=== PATIENT | male | born 1945 | race Caucasian/White ===

== ENCOUNTER 2017-11-14 00:08 | Emergency (ER) | payer MEDICARE, OTHER ==
[2017-11-14 00:14] VITALS: BP 176/78
[2017-11-14] MEDS ORDERED: Clindamycin HCl 150 MG Cap PO ONE (00:21)
[2017-11-14] MEDS ORDERED: Lidocaine 2% Viscous Solution 15 ML Cup PO ONE (00:21)
--- NOTE | 2017-11-14 00:27 | EDM.PDOC ---
ED HPI GENERAL MEDICAL PROBLEM - General Chief Complaint: ENT Problem Stated Complaint: TOOTH PAIN [id number] Time Seen by Provider: 11/14/17 00:17 Source of Information: Reports: Patient History Limitations: Reports: No Limitations - History of Present Illness INITIAL COMMENTS - FREE TEXT/NARRATIVE: This 72 yo male patient reports to the ED due to right lower posterior dental pain. The patient reports he first noticed the symptoms 1 month ago, but the pain went away. Today, the patient was out working cattle all day. When he got back in the house, he noticed the pain. The patient reports he took some ibuprofen a couple of days ago, but thought he was going to after taking the medication. The patient reports that he does not have a primary care provider. The patient reports that he plans to get into the dentist in the morning. Onset: Today Duration: Constant Location: Reports: Face Quality: Reports: Ache, Sharp, Stabbing Severity: Severe Improves with: Reports: None Worsens with: Reports: None Treatments FREIGHT BRAKEMAN: Reports: Other Medication(s) Other Treatments FREIGHT BRAKEMAN: anbesol Right Lower Face Pain Score (Numeric/FACES): 8 - Related Data Allergies Allergy/AdvReac Type Severity Reaction Status Date / Time oxycodone [From Percocet] Allergy Itching Verified 11/14/17 00:15 Penicillins Allergy Rash Verified 11/14/17 00:15 Home Meds: Home Meds . [No Known Home Meds] 04/03/16 [History] Past Medical History HEENT History: Reports: Hard of Hearing, Impaired Vision Other HEENT History: reading glasses Cardiovascular History: Reports: None Respiratory History: Reports: None Gastrointestinal History: Reports: None Genitourinary History: Reports: None Musculoskeletal History: Reports: Fracture Neurological History: Reports: None Psychiatric History: Reports: None Endocrine/Metabolic History: Reports: None Hematologic History: Reports: None Immunologic History: Reports: None Oncologic (Cancer) History: Reports: None Dermatologic History: Reports: None - Infectious Disease History Infectious Disease History: Reports: Measles - Past Surgical History GI Surgical History: Reports: Hernia Repair/Other Social & Family History - Tobacco Use Smoking Status *Q: Never Smoker Second Hand Smoke Exposure: No - Caffeine Use Caffeine Use: Reports: None - Recreational Drug Use Recreational Drug Use: No ED ROS ENT - Review of Systems Review Of Systems: ROS reveals no pertinent complaints other than HPI. ED EXAM, ENT - Physical Exam Exam: See Below Exam Limited By: No Limitations General Appearance: Alert, WD/WN, Moderate Distress Eye Exam: Bilateral Eye: EOMI, Normal Inspection, PERRL Ears: Normal External Exam, Normal Canal, Hearing Grossly Normal, Normal TMs Nose: Normal Inspection, Normal Mucousa, No Blood Mouth/Throat: Dental Pain, Dental Tenderness, Gum Swelling Head: Atraumatic, Normocephalic Neck: Normal Inspection, Supple, Non-Tender, Full Range of Motion Respiratory/Chest: No Respiratory Distress, Lungs Clear, Normal Breath Sounds, No Accessory Muscle Use, Chest Non-Tender Cardiovascular: Normal Peripheral Pulses, No Edema, No Gallop, No JVD, No Rub, Systolic Murmur, Extra Beats GI/Abdominal: Normal Bowel Sounds, Soft, Non-Tender, No Organomegaly, No Distention, No Abnormal Bruit, No Mass (Male) Exam: Deferred Rectal (Males) Exam: Deferred Extremities: Normal Inspection, Normal Range of Motion, Non-Tender, No Pedal Edema, Normal Capillary Refill Neurological: Alert, Oriented, CN II-XII Intact, Normal Cognition, Normal Gait, Normal Reflexes, No Motor/Sensory Deficits Psychiatric: Normal Affect, Normal Mood Skin: Warm, Dry, Intact, Normal Color, No Rash Lymphatic: No Adenopathy Course - Vital Signs Last Recorded V/S: Last Vital Signs Temp 36.8 C 11/14/17 00:12 Pulse 81 11/14/17 00:12 Resp 16 11/14/17 00:12 BP 176/78 H 11/14/17 00:12 Pulse Ox 98 11/14/17 00:12 - Orders/Labs/Meds Orders: Active Orders 24 hr Category Date Time Status Clindamycin HCl [Cleocin] Med 11/14/17 00:21 Once 300 mg PO ONETIME ONE Lidocaine 2% [Xylocaine 2% Viscous] Med 11/14/17 00:21 Once 15 ml PO ONETIME ONE Departure - Departure Time of Disposition: 00:28 Disposition: Home, Self-Care 01 Condition: Fair Clinical Impression: Dental caries extending into dentin - Discharge Information Instructions: Tooth Injuries, [id number], Dental Abscess, [id number] Care Plan Goals: The patient was advised of the examination results during the visit. The patient was given an oral dose of Clindamycin, Tylenol and Viscous Lidocaine 2% topical application to the area of concern. The patient was discharged with a script for Clindamycin (300 mg) to take 1 by mouth 4 times per day for 10 days and Viscous Lidocaine 2% #100 mL to apply 5-10 mL to a cotton ball applied to the area of discomfort every 6 hours as needed for temporary symptom relief. The patient was encouraged to follow-up with a dentist tomorrow for continued evaluation and further management. - My Orders Last 24 Hours: My Active Orders 11/14/17 00:21 Clindamycin HCl [Cleocin] 300 mg PO ONETIME ONE Lidocaine 2% [Xylocaine 2% Viscous] 15 ml PO ONETIME ONE - Assessment/Plan Last 24 Hours: My Active Orders 11/14/17 00:21 Clindamycin HCl [Cleocin] 300 mg PO ONETIME ONE Lidocaine 2% [Xylocaine 2% Viscous] 15 ml PO ONETIME ONE
[2017-11-14] MEDS ORDERED: Acetaminophen 325 MG Tab PO ONE (00:37)
== END 2017-11-14 00:40 | disposition home or self-care (01) ==
LOC: DL.ED 00:08
DX: K02.9 Dental caries, unspecified (principal); Z88.5 Allergy status to narcotic agent; Z88.0 Allergy status to penicillin
CPT/HCPCS: 99282; A9270-GY

== ENCOUNTER 2019-11-19 17:05 | Emergency (ER) | payer MEDICARE, OTHER ==
--- NOTE | 2019-11-19 18:26 | EDM.PDOC ---
ED HPI GENERAL MEDICAL PROBLEM - General Chief Complaint: Chest Pain Stated Complaint: CANT BREATH SWELLING UP Time Seen by Provider: 11/19/19 18:23 Source of Information: Reports: Patient History Limitations: Reports: No Limitations - History of Present Illness INITIAL COMMENTS - FREE TEXT/NARRATIVE: been having progressive SOB past year, today felt worse with pain on breathing. also legs have been swelling too. - Related Data Allergies Allergy/AdvReac Type Severity Reaction Status Date / Time oxycodone [From Percocet] Allergy Itching Verified 11/19/19 18:16 Penicillins Allergy Rash Verified 11/19/19 18:16 Home Meds: Home Meds . [No Known Home Meds] 04/03/16 [History] Past Medical History HEENT History: Reports: Hard of Hearing, Impaired Vision Other HEENT History: reading glasses Cardiovascular History: Reports: None Respiratory History: Reports: None Gastrointestinal History: Reports: None Genitourinary History: Reports: None, Other (See Below) Other Genitourinary History: Was told his kidneys "need some work". Musculoskeletal History: Reports: Fracture Neurological History: Reports: None Psychiatric History: Reports: None Endocrine/Metabolic History: Reports: None Hematologic History: Reports: None Immunologic History: Reports: None Oncologic (Cancer) History: Reports: None Dermatologic History: Reports: None - Infectious Disease History Infectious Disease History: Reports: Measles - Past Surgical History Head Surgeries/Procedures: Reports: None GI Surgical History: Reports: Hernia Repair/Other Social & Family History - Family History Family Medical History: Noncontributory - Caffeine Use Caffeine Use: Reports: Coffee Caffeine Use Comment: occassional ED ROS GENERAL - Review of Systems Review Of Systems: Comprehensive ROS is negative, except as noted in HPI. ED EXAM, GENERAL - Physical Exam Exam: See Below Exam Limited By: No Limitations General Appearance: Alert, WD/WN, Mild Distress, Other (discomfort) Ears: Hearing Grossly Normal Throat/Mouth: Normal Voice, No Airway Compromise Head: Atraumatic Neck: Non-Tender, Full Range of Motion Respiratory/Chest: No Respiratory Distress, No Accessory Muscle Use, Rhonchi Cardiovascular: Regular Rate, Rhythm GI/Abdominal: Soft, Non-Tender Extremities: Pedal Edema, Other (2+ bilateral) Neurological: Alert, Oriented, Normal Cognition, Normal Gait, No Motor/Sensory Deficits Psychiatric: Normal Affect, Normal Mood Skin Exam: Warm, Dry, Normal Color Lymphatic: No Adenopathy Course - Vital Signs Last Recorded V/S: Last Vital Signs Temp 36.6 C 11/19/19 17:48 Pulse 75 11/19/19 17:48 Resp 20 11/19/19 17:48 BP 177/73 H 11/19/19 17:48 Pulse Ox 98 11/19/19 17:48 - Orders/Labs/Meds Orders: Active Orders 24 hr Category Date Time Status EKG 12 Lead [EKG Documentation Completion] [RC] STAT Care 11/19/19 18:22 Active Chest 1V Frontal [CR] Urgent Exams 11/19/19 18:26 Taken UA RFX STEPHEN AND CULT IF INDIC [URIN] Stat Lab 11/19/19 20:03 Ordered Labs: Laboratory Tests 11/19/19 11/19/19 Range/Units 18:34 18:34 WBC 11.2 H (5.0-10.0) 10^3/uL RBC 2.76 L (4.6-6.2) 10^6/uL Hgb 7.7 L D (14.0-18.0) g/dL Hct 23.5 L (40.0-54.0) % MCV 85.1 (80-100) fL MCH 27.9 (27.0-34.0) pg MCHC 32.8 L (33.0-35.0) g/dL Plt Count 214 (150-450) 10^3/uL Neut % (Auto) 80.0 H (42.2-75.2) % Lymph % (Auto) 10.3 L (20.5-50.1) % [place] % (Auto) 8.5 H (2-8) % Eos % (Auto) 0.9 L (1.0-3.0) % Baso % (Auto) 0.3 (0.0-1.0) % Sodium 138 (135-145) mmol/L Potassium 6.0 H (3.6-5.0) mmol/L Chloride 116 H (101-111) mmol/L Carbon Dioxide 11.0 L (21.0-31.0) mmol/L Anion Gap 17.0 BUN 133 H D (7-18) mg/dL Creatinine 11.0 H D (0.6-1.3) mg/dL Est Cr Clr Drug Dosing 5.76 mL/min Estimated GFR (MDRD) 5 BUN/Creatinine Ratio 12.09 Glucose 118 H (74-105) mg/dL Calcium 7.0 L (8.4-10.2) mg/dl Total Bilirubin 0.5 (0.2-1.0) mg/dL AST 18 (10-42) IU/L ALT 31 (10-60) IU/L Alkaline Phosphatase 136 H (42-121) IU/L Troponin I 0.06 H* (0.00-0.02) ng/ml B-Natriuretic Peptide 1100 H (0-100) pg/ml Total Protein 6.4 L (6.7-8.2) g/dl Albumin 3.8 (3.2-5.5) g/dl Globulin 2.6 Albumin/Globulin Ratio 1.46 Meds: Medications Discontinued Medications Generic Name Dose Route Start Last Admin Trade Name Freq PRN Reason Stop Dose Admin Furosemide 80 mg 11/19/19 19:48 11/19/19 19:56 Lasix IVPUSH 11/19/19 19:49 80 mg NOW ONE Administration - Re-Assessments/Exams Free Text/Narrative Re-Assessment/Exam: 11/19/19 20:03 results discussed with pt who states does not go to dialysis. case discussed with Dr Lockhart @ [email or web address] who kindly accepted pt. Departure - Departure Time of Disposition: 20:04 Disposition: DC/Tfer to Acute Hospital 02 Reason for Transfer *Q: Other Condition: Fair Clinical Impression: Hyperkalemia, Dyspnea on exertion, Elevated troponin, Elevated brain natriuretic peptide (BNP) level Renal failure Qualifiers: Renal failure chronicity: unspecified chronicity Qualified Code(s): N19 - Unspecified kidney failure Chest pain Qualifiers: Chest pain type: chest pain on breathing Qualified Code(s): R07.1 - Chest pain on breathing; R07.81 - Pleurodynia CHF (congestive heart failure) Qualifiers: Heart failure type: unspecified Heart failure chronicity: unspecified Qualified Code(s): I50.9 - Heart failure, unspecified Forms: Interfacility Transfer EMTALA Sepsis Event Note - Focused Exam Vital Signs: Vital Signs Temp Pulse Resp BP Pulse Ox 11/19/19 17:48 36.6 C 75 20 177/73 H 98 Date Exam was Performed: 11/19/19 Time Exam was Performed: 20:03 - My Orders Last 24 Hours: My Active Orders 11/19/19 18:22 EKG 12 Lead [EKG Documentation Completion] [RC] STAT 11/19/19 18:26 Chest 1V Frontal [CR] Urgent 11/19/19 20:03 UA RFX STEPHEN AND CULT IF INDIC [URIN] Stat - Assessment/Plan Last 24 Hours: My Active Orders 11/19/19 18:22 EKG 12 Lead [EKG Documentation Completion] [RC] STAT 11/19/19 18:26 Chest 1V Frontal [CR] Urgent 11/19/19 20:03 UA RFX STEPHEN AND CULT IF INDIC [URIN] Stat
[2019-11-19 18:43] VITALS: BP 177/73; PULSE 75
[2019-11-19] MEDS ORDERED: Furosemide 40 MG/4 ML VIAL IVPUSH ONE (19:48)
== END 2019-11-19 21:00 ==
LOC: DL.ED 17:05
DX: E87.5 Hyperkalemia (principal); I50.9 Heart failure, unspecified; N19 Unspecified kidney failure; R79.89 Other specified abnormal findings of blood chemistry; Z88.5 Allergy status to narcotic agent; Z88.0 Allergy status to penicillin
CPT/HCPCS: 36415; 71045; 80053; 81001; 83880; 84484; 85025; 93005; 96374; 99285; J1940

== ENCOUNTER 2020-05-30 19:46 | Emergency (ER) | payer MEDICARE, OTHER ==
--- NOTE | 2020-05-30 20:54 | EDM.PDOC ---
ED HPI GENERAL MEDICAL PROBLEM - General Chief Complaint: Abdominal Pain Stated Complaint: ABDOMINAL PAINS Time Seen by Provider: 05/30/20 20:53 Source of Information: Reports: Patient History Limitations: Reports: No Limitations - History of Present Illness INITIAL COMMENTS - FREE TEXT/NARRATIVE: abd pain all week, told dialysis about it, not getting better so came here. pain is constant denies urinary problems and denies prior episode. Bilateral Lower Abdomen Pain Score (Numeric/FACES): 4 - Related Data Allergies Allergy/AdvReac Type Severity Reaction Status Date / Time oxycodone [From Percocet] Allergy Itching Verified 11/19/19 18:16 Penicillins Allergy Rash Verified 11/19/19 18:16 Home Meds: Home Meds . [No Known Home Meds] 04/03/16 [History] Past Medical History HEENT History: Reports: Hard of Hearing, Impaired Vision Other HEENT History: reading glasses Cardiovascular History: Reports: None Respiratory History: Reports: None Gastrointestinal History: Reports: None Genitourinary History: Reports: None, Dialysis, Dialysis, Peritoneal, Other (See Below) Other Genitourinary History: Was told his kidneys "need some work". Musculoskeletal History: Reports: Fracture Neurological History: Reports: None Psychiatric History: Reports: None Endocrine/Metabolic History: Reports: None Hematologic History: Reports: None Immunologic History: Reports: None Oncologic (Cancer) History: Reports: None Dermatologic History: Reports: None - Infectious Disease History Infectious Disease History: Reports: Measles - Past Surgical History Head Surgeries/Procedures: Reports: None GI Surgical History: Reports: Hernia Repair/Other Social & Family History - Family History Family Medical History: Noncontributory - Tobacco Use Smoking Status *Q: Never Smoker Second Hand Smoke Exposure: No - Caffeine Use Caffeine Use: Reports: Coffee Caffeine Use Comment: occassional - Recreational Drug Use Recreational Drug Use: No ED ROS GENERAL - Review of Systems Review Of Systems: Comprehensive ROS is negative, except as noted in HPI. ED EXAM, GI/ABD - Physical Exam Exam: See Below Exam Limited By: No Limitations General Appearance: Alert, WD/WN, Mild Distress, Other (discomfort). No: Active Emesis Ears: Hearing Grossly Normal Throat/Mouth: Normal Voice, No Airway Compromise Head: Atraumatic Neck: Non-Tender, Full Range of Motion Respiratory/Chest: No Respiratory Distress Cardiovascular: Regular Rate, Rhythm GI/Abdominal Exam: Guarding, Tender, Other (suprapubic region). No: Distended, Rigid, Rebound (Male) Exam: Deferred Rectal (Males) Exam: Deferred Neurological: Alert, Oriented, Normal Cognition, No Motor/Sensory Deficits Psychiatric: Flat Affect Skin Exam: Warm, Dry, Normal Color Lymphatic: No Adenopathy Course - Vital Signs Last Recorded V/S: Last Vital Signs Temp 36.6 C 05/30/20 20:16 Pulse 64 05/30/20 20:16 Resp 18 05/30/20 20:16 BP 170/60 H 05/30/20 20:16 Pulse Ox 100 05/30/20 20:16 - Orders/Labs/Meds Labs: Laboratory Tests 05/30/20 05/30/20 05/30/20 Range/Units 20:25 20:25 21:23 WBC 8.0 (5.0-10.0) 10^3/uL RBC 3.41 L (4.6-6.2) 10^6/uL Hgb 10.1 L D (14.0-18.0) g/dL Hct 30.0 L (40.0-54.0) % MCV 88.0 (80-100) fL MCH 29.6 (27.0-34.0) pg MCHC 33.7 (33.0-35.0) g/dL Plt Count 189 (150-450) 10^3/uL Neut % (Auto) 54.2 (42.2-75.2) % Lymph % (Auto) 31.5 (20.5-50.1) % [place] % (Auto) 9.1 H (2-8) % Eos % (Auto) 4.9 H (1.0-3.0) % Baso % (Auto) 0.3 (0.0-1.0) % Sodium 137 (136-145) mmol/L Potassium 6.5 H (3.5-5.1) mmol/L Chloride 105 (98-107) mmol/L Carbon Dioxide 17 L (21-32) mmol/L Anion Gap 21.5 H (7-13) mEq/L BUN 126 H (7-18) mg/dL Creatinine 12.56 H* (0.70-1.30) mg/dL Est Cr Clr Drug Dosing 5.07 mL/min Estimated GFR (MDRD) 4 BUN/Creatinine Ratio 10.0 (No establ ref range) Glucose 99 (74-99) mg/dL Calcium 7.6 L (8.5-10.1) mg/dL Total Bilirubin 0.4 (0.2-1.0) mg/dL AST 20 (15-37) U/L ALT 27 (16-63) U/L Alkaline Phosphatase 276 H (46-116) U/L Total Protein 6.1 L (6.4-8.2) g/dL Albumin 2.8 L (3.4-5.0) g/dL Globulin 3.3 Albumin/Globulin Ratio 0.85 Urine Color Yellow (YELLOW) Urine Appearance Clear (CLEAR) Urine pH 8.0 (5.0-9.0) Ur Specific [place] 1.020 (1.005-1.030) Urine Protein 100 H (NEGATIVE) Urine Glucose (UA) 100 H (NEGATIVE) Urine Ketones Negative (NEGATIVE) Urine Occult Blood Small H (NEGATIVE) Urine Nitrite Negative (NEGATIVE) Urine Bilirubin Negative (NEGATIVE) Urine Urobilinogen 0.2 (0.2-1.0) mg/dL Ur Leukocyte Esterase Negative (NEGATIVE) Urine RBC 0-5 /HPF Urine WBC 0-5 (0-5/HPF) /HPF Ur Epithelial Cells Rare (NOT SEEN) /HPF Urine Bacteria Occasional (0-FEW/HPF) /HPF Meds: Medications Discontinued Medications Generic Name Dose Route Start Last Admin Trade Name Freq PRN Reason Stop Dose Admin Nitrofurantoin Macrocrystals 100 mg 05/30/20 22:33 Macrobid PO 05/30/20 22:34 ONETIME ONE - Re-Assessments/Exams Free Text/Narrative Re-Assessment/Exam: 05/30/20 22:34 results discussed with 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 states winter is coming. Departure - Departure Time of Disposition: 22:35 Disposition: Home, Self-Care 01 Condition: Good Clinical Impression: Cystitis - Discharge Information Forms: ED Department Discharge Additional Instructions: 1) continue home dialysis 2) see kidney doctor Tuesday for possible UROLOGY REFERRAL rx givne; macrobid 100mg bid x 20 Sepsis Event Note (ED) - Evaluation Sepsis Screening Result: No Definite Risk - Focused Exam Vital Signs: Vital Signs Temp Pulse Resp BP Pulse Ox 05/30/20 20:16 36.6 C 64 18 170/60 H 100
[2020-05-30 21:00] LABS: ANION GAP 21.5 mEq/L (7-13)
--- NOTE | 2020-05-30 22:08 | CT ---
PROCEDURE INFORMATION: Exam: CT Abdomen And Pelvis Without Contrast Exam date and time: 05/30/2020 9:30 PM Age: 74 years old Clinical indication: Other: Low abd pain; Additional info: Pain, dialysis TECHNIQUE: Imaging protocol: Computed tomography of the abdomen and pelvis without contrast. Radiation optimization: All CT scans at this facility use at least one of these dose optimization techniques: automated exposure control; mA and/or kV adjustment per patient size (includes targeted exams where dose is matched to clinical indication); or iterative reconstruction. COMPARISON: No relevant prior studies available. FINDINGS: Tubes, catheters and devices: A peritoneal dialysis catheter is coiled within the pelvis. Lungs: Some strandy opacities are seen in the lingula likely representing atelectasis. There is mild bilateral basilar bronchiectasis and emphysema. Liver: Normal. No mass. Gallbladder and bile ducts: Normal. No calcified stones. No ductal dilation. Pancreas: Normal. No ductal dilation. Spleen: Normal. No splenomegaly. Adrenals: Normal. No mass. Kidneys and ureters: There multiple benign appearing cysts seen within both kidneys, the largest on the right is seen in the upper pole measuring 2.2 cm, the largest on the left is in the upper pole and measures 2.8 cm. There are strandy opacity seen within the perinephric fascia bilaterally, left more prominent than right. Some strandy opacities in the left perinephric space are of intermediate attenuation and some intermediate attenuation extends into the left renal parenchyma. This finding could represent a ruptured hemorrhagic cyst. A smaller hemorrhagic cyst is seen on the upper pole of the right kidney measuring 8 mm. Stomach and bowel: Diverticula are present, most numerous within the sigmoid colon. There is bowel wall thickening seen within the sigmoid colon. Additionally, there is some subtle haziness present within the sigmoid mesentery. Mild diverticulitis cannot be excluded. Appendix: The appendix is visualized and is normal in configuration. Intraperitoneal space: See "Stomach and bowel" finding. Vasculature: Unremarkable. No abdominal aortic aneurysm. Lymph nodes: Unremarkable. No enlarged lymph nodes. Bladder: There is moderate bladder wall thickening seen and some haziness seen along the serosal margin, findings that could represent chronic cystitis although the bladder is nondistended. Reproductive: Unremarkable as visualized. Bones/joints: Unremarkable. No acute fracture. Soft tissues: Unremarkable. IMPRESSION: 1. A peritoneal dialysis catheter is seen coiled within the pelvis. 2. Multiple bilateral simple appearing renal cysts, the largest is seen on the left in the upper pole measuring 2.8 cm. A small 8 mm hemorrhagic cyst is seen in the upper pole of the right kidney. There is some intermediate density within the left renal parenchyma and some adjacent perinephric intermediate attenuation strandy opacities present, findings that raise some suspicion for a ruptured hemorrhagic cyst. Follow-up evaluation with renal sonography is suggested initially. 3. Bladder wall thickening and haziness seen along the serosal margin, findings could represent cystitis although the bladder is incompletely distended. 4. Diverticulosis. Some bowel wall thickening is seen within the sigmoid colon. Subtle haziness seen within the sigmoid mesentery. These findings could represent mild diverticulitis. 5. Strandy opacities within the lingula likely represents atelectasis.
[2020-05-30] MEDS ORDERED: Nitrofurantoin Monohydrate/Macrocrystalline 100 MG Cap PO ONE (22:33)
[2020-05-30 22:42] VITALS: BP 142/56; PULSE 62
== END 2020-05-30 22:49 | disposition home or self-care (01) ==
LOC: DL.ED 19:46
DX: N30.90 Cystitis, unspecified without hematuria (principal); Z88.5 Allergy status to narcotic agent; Z88.0 Allergy status to penicillin
CPT/HCPCS: 36415; 74176; 80053; 81001; 85025; 99283; 99284-25; A9270-GY

== ENCOUNTER 2020-06-03 20:33 | Observation (INO) | payer MEDICARE, OTHER ==
--- NOTE | 2020-06-03 21:15 | CR ---
PROCEDURE INFORMATION: Exam: XR Chest, 1 View Exam date and time: 06/03/2020 8:59 PM Age: 74 years old Clinical indication: Chest pain; Type not specified TECHNIQUE: Imaging protocol: XR of the chest Views: 1 view. COMPARISON: CR Chest 1V Frontal 11/19/2019 6:52 PM FINDINGS: Tubes, catheters and devices: Right chest tunnel dialysis catheter is well positioned. Lungs: No acute lung infiltrates or consolidation. Pleural space: No pleural effusions evident. Heart/Mediastinum: moderate cardiac enlargement. Bones/joints: Unremarkable. IMPRESSION: 1. No acute lung infiltrates or edema. 2. No pleural effusions. 3. Moderate cardiac enlargement. 4. Right chest tunneled dialysis catheter is well positioned.
[2020-06-03 21:32] LABS: ANION GAP 8.5 mEq/L (7-13)
[2020-06-03] MEDS ORDERED: Iopamidol 755 Mg/ML 100 ML Bottle IVPUSH ONE (22:07)
[2020-06-03] MEDS ORDERED: GI Cocktail Oral Solution 30 ML PO ONE (22:37)
--- NOTE | 2020-06-03 22:45 | CT ---
PROCEDURE INFORMATION: Exam: CT Chest With Contrast Exam date and time: 06/03/2020 10:22 PM Age: 74 years old Clinical indication: Dyspnea; Additional info: Dyspnea ddimer 1200 TECHNIQUE: Imaging protocol: Computed tomography of the chest with intravenous contrast. Radiation optimization: All CT scans at this facility use at least one of these dose optimization techniques: automated exposure control; mA and/or kV adjustment per patient size (includes targeted exams where dose is matched to clinical indication); or iterative reconstruction. Contrast material: ISOVUE 370; Contrast volume: 68 ml; Contrast route: INTRAVENOUS (IV); COMPARISON: CR Chest 1V Frontal 06/03/2020 8:59 PM FINDINGS: Tubes, catheters and devices: Right chest wall tunneled dialysis catheter via the internal jugular vein. Lungs: Lungs are clear of infiltrates. There is mild bronchiectasis. There is left lingular atelectasis. There is mild posterior basilar atelectasis versus scarring. A nonspecific small nodule is seen in the posterior left upper lobe on series 5, image 46. This measures 5 mm. This is likely a small granuloma. This is noncalcified. Pleural space: Unremarkable. No pneumothorax. No pleural effusion. Heart: Cardiomegaly. Left ventricular enlargement and hypertrophy. Mitral valve prosthesis suggested. Minor pericardial effusion. Pulmonary arteries: Pulmonary arteries well opacified. No embolism. Aorta: Thoracic aorta is nonaneurysmal. No dissection. Lymph nodes: Nonspecific precarinal lymph node in the mediastinum measuring 20 x 17 mm Bones/joints: Unremarkable. No acute fracture. Soft tissues: Unremarkable. IMPRESSION: 1. No pulmonary arterial embolism. 2. Cardiomegaly. Mitral valve prosthesis suggested. 3. Nonspecific 5 mm rounded nodule in the inferior left upper lobe. For patients at low risk (minimal or absent history of smoking and of other known risk factors), no routine follow-up is indicated. For patients at high risk (history of smoking or of other known risk factors), consider optional CT Chest at 12 months. (Reference: Samantha) 4. Mild areas of atelectatic type lung change in the posterior bases and in the lingula. 5. Nonspecific precarinal mediastinal node measuring 20 x 17 mm. REFERENCES: Samantha Ascencio, et al. Guidelines for Management of Incidental Pulmonary Nodules Detected on CT Images: From the Fleischner Society 2017. Radiology. 2017;284(1):228-243.
[2020-06-03] MEDS ORDERED: Aspirin 81 MG Tab.Chew PO ONE (22:52)
--- NOTE | 2020-06-04 01:29 | EDM.PDOC ---
ED HPI GENERAL MEDICAL PROBLEM - General Chief Complaint: Chest Pain Stated Complaint: CHEST PAINS Time Seen by Provider: 06/03/20 21:00 Source of Information: Reports: Patient, RN History Limitations: Reports: No Limitations - History of Present Illness INITIAL COMMENTS - FREE TEXT/NARRATIVE: ED with c/o chest pain intermittent past 7 days, Today worse with taking deep breath or lying down. States stared after he was seen last week with abdominal pain. On peritoneal dialysis at home. States wad been told by kidney Dr to not do for a couple evening but then filled up with fluid, [facility] dialysis for 4 hours today. Was told after he needed to go to ED if chest pain. Reports pain not diffeerent than past week points epigastric area. has not tried anything. No radiation, No nausea or sweating. No fever chills or cough. Mid-Sternal Pain Score (Numeric/FACES): 7 - Related Data Allergies Allergy/AdvReac Type Severity Reaction Status Date / Time oxycodone [From Percocet] Allergy Itching Verified 06/04/20 03:09 Penicillins Allergy Rash Verified 06/04/20 03:09 Home Meds: Home Meds Calcium Acetate [PhosLo] 667 mg PO DAILY 06/03/20 [History] Metoprolol Tartrate 12.5 mg PO BID 06/03/20 [History] Aspirin 81 mg PO DAILY 06/04/20 [History] Past Medical History HEENT History: Reports: Hard of Hearing, Impaired Vision Other HEENT History: reading glasses Cardiovascular History: Reports: None Respiratory History: Reports: None Gastrointestinal History: Reports: None Genitourinary History: Reports: None, Dialysis, Dialysis, Peritoneal, Other (See Below) Other Genitourinary History: Was told his kidneys "need some work". Musculoskeletal History: Reports: Fracture Neurological History: Reports: None Psychiatric History: Reports: None Endocrine/Metabolic History: Reports: None Hematologic History: Reports: None Immunologic History: Reports: None Oncologic (Cancer) History: Reports: None Dermatologic History: Reports: None - Infectious Disease History Infectious Disease History: Reports: Measles - Past Surgical History Head Surgeries/Procedures: Reports: None GI Surgical History: Reports: Hernia Repair/Other Social & Family History - Family History Family Medical History: Noncontributory - Tobacco Use Smoking Status *Q: Never Smoker - Caffeine Use Caffeine Use: Reports: None Caffeine Use Comment: occassional - Recreational Drug Use Recreational Drug Use: No ED ROS GENERAL - Review of Systems Review Of Systems: Comprehensive ROS is negative, except as noted in HPI. ED EXAM, GENERAL - Physical Exam Exam: See Below Exam Limited By: No Limitations General Appearance: Alert, Anxious, Mild Distress (with movement and deep breathing) Eye Exam: Bilateral Eye: EOMI Ears: Normal External Exam, Hearing Grossly Normal Nose: Normal Inspection Throat/Mouth: Normal Inspection Respiratory/Chest: No Respiratory Distress, Lungs Clear, No Accessory Muscle Use Cardiovascular: Normal Peripheral Pulses, Regular Rate, Rhythm, Other (rare PVC) GI/Abdominal: Normal Bowel Sounds Back Exam: Normal Inspection, Full Range of Motion Extremities: Normal Inspection, Normal Range of Motion Neurological: Alert, Oriented, Normal Cognition Psychiatric: Normal Affect, Normal Mood Skin Exam: Warm, Dry, Normal Color Course - Vital Signs Last Recorded V/S: Last Vital Signs Temp 98.0 F 06/04/20 03:08 Pulse 64 06/04/20 03:08 Resp 16 06/04/20 03:08 BP 148/49 H 06/04/20 03:08 Pulse Ox 99 06/04/20 03:08 - Orders/Labs/Meds Orders: Active Orders 24 hr Category Date Time Status Cardiac Monitoring [RC] . DIRECTED Care 06/03/20 20:58 Active EKG 12 Lead [EKG Documentation Completion] [RC] STAT Care 06/03/20 23:27 Active EKG Documentation Completion [RC] STAT Care 06/03/20 20:59 Active Labs: Laboratory Tests 06/03/20 06/03/20 06/03/20 Range/Units 20:55 20:55 20:55 WBC 6.8 (5.0-10.0) 10^3/uL RBC 3.53 L (4.6-6.2) 10^6/uL Hgb 10.5 L (14.0-18.0) g/dL Hct 31.1 L (40.0-54.0) % MCV 88.1 (80-100) fL MCH 29.7 (27.0-34.0) pg MCHC 33.8 (33.0-35.0) g/dL Plt Count 163 (150-450) 10^3/uL Neut % (Auto) 62.1 (42.2-75.2) % Lymph % (Auto) 23.6 (20.5-50.1) % [place] % (Auto) 11.6 H (2-8) % Eos % (Auto) 2.4 (1.0-3.0) % Baso % (Auto) 0.3 (0.0-1.0) % PT 10.8 (9.0-12.0) SEC INR 1.1 (0.9-1.2) D-Dimer, Quantitative 1210 H (0-400) ng/mL Sodium 140 (136-145) mmol/L Potassium 3.5 D (3.5-5.1) mmol/L Chloride 103 (98-107) mmol/L Carbon Dioxide 32 D (21-32) mmol/L Anion Gap 8.5 (7-13) mEq/L BUN 28 H D (7-18) mg/dL Creatinine 4.69 H D (0.70-1.30) mg/dL Est Cr Clr Drug Dosing 13.57 mL/min Estimated GFR (MDRD) 12 BUN/Creatinine Ratio 6.0 (No establ ref range) Glucose 148 H (74-99) mg/dL Calcium 7.2 L (8.5-10.1) mg/dL Magnesium 1.5 L (1.8-2.4) mg/dL Total Bilirubin 0.3 (0.2-1.0) mg/dL AST 23 (15-37) U/L ALT 24 (16-63) U/L Alkaline Phosphatase 249 H (46-116) U/L Troponin I 0.041 (0.000-0.056) ng/mL B-Natriuretic Peptide 1050 H (0-100) pg/ml Total Protein 5.4 L (6.4-8.2) g/dL Albumin 2.2 L (3.4-5.0) g/dL Globulin 3.2 Albumin/Globulin Ratio 0.69 Amylase 63 (25-115) U/L 06/04/20 Range/Units 01:03 WBC (5.0-10.0) 10^3/uL RBC (4.6-6.2) 10^6/uL Hgb (14.0-18.0) g/dL Hct (40.0-54.0) % MCV (80-100) fL MCH (27.0-34.0) pg MCHC (33.0-35.0) g/dL Plt Count (150-450) 10^3/uL Neut % (Auto) (42.2-75.2) % Lymph % (Auto) (20.5-50.1) % [place] % (Auto) (2-8) % Eos % (Auto) (1.0-3.0) % Baso % (Auto) (0.0-1.0) % PT (9.0-12.0) SEC INR (0.9-1.2) D-Dimer, Quantitative (0-400) ng/mL Sodium (136-145) mmol/L Potassium (3.5-5.1) mmol/L Chloride (98-107) mmol/L Carbon Dioxide (21-32) mmol/L Anion Gap (7-13) mEq/L BUN (7-18) mg/dL Creatinine (0.70-1.30) mg/dL Est Cr Clr Drug Dosing mL/min Estimated GFR (MDRD) BUN/Creatinine Ratio (No establ ref range) Glucose (74-99) mg/dL Calcium (8.5-10.1) mg/dL Magnesium (1.8-2.4) mg/dL Total Bilirubin (0.2-1.0) mg/dL AST (15-37) U/L ALT (16-63) U/L Alkaline Phosphatase (46-116) U/L Troponin I 0.055 (0.000-0.056) ng/mL B-Natriuretic Peptide (0-100) pg/ml Total Protein (6.4-8.2) g/dL Albumin (3.4-5.0) g/dL Globulin Albumin/Globulin Ratio Amylase (25-115) U/L Meds: Medications Discontinued Medications Generic Name Dose Route Start Last Admin Trade Name Freq PRN Reason Stop Dose Admin Al Hydroxide/Mg Hydroxide 30 ml 06/03/20 22:37 06/03/20 22:41 Gi Cocktail PO 06/03/20 22:38 30 ml ONETIME ONE Administration Aspirin 324 mg 06/03/20 22:52 06/03/20 23:05 Aspirin PO 06/03/20 22:53 324 mg ONETIME ONE Administration Iopamidol 100 ml 06/03/20 22:07 06/03/20 22:39 Isovue-370 (76%) IVPUSH 06/03/20 22:08 68 ml ONETIME ONE Administration - Re-Assessments/Exams Free Text/Narrative Re-Assessment/Exam: 06/04/20 02:[address] Fontanez, Recommend repeat Trop. in 4-6 hours. Prior EKG reviewed. Does not appear acute. Patient resting comfortably. reports intermittent sharp pain with position change. Notes worst of symptoms noted shortly after taking Macrobid. Was initially prescribed last week for possible UTI. Had saved prescription and was taking it past couple days to "prevent getting a cold" Departure - Departure Time of Disposition: 02:55 Disposition: Refer to Observation Condition: Good Clinical Impression: Peritoneal dialysis status, Atypical chest pain, Elevated d-dimer Sepsis Event Note (ED) - Evaluation Sepsis Screening Result: No Definite Risk - Focused Exam Vital Signs: Vital Signs Temp Pulse Resp BP Pulse Ox 06/03/20 20:57 97.2 F 146 H 18 146/56 H 95 - My Orders Last 24 Hours: My Active Orders 06/03/20 20:58 Cardiac Monitoring [RC] . DIRECTED 06/03/20 20:59 EKG Documentation Completion [RC] STAT 06/03/20 23:27 EKG 12 Lead [EKG Documentation Completion] [RC] STAT - Assessment/Plan Last 24 Hours: My Active Orders 06/03/20 20:58 Cardiac Monitoring [RC] . DIRECTED 06/03/20 20:59 EKG Documentation Completion [RC] STAT 06/03/20 23:27 EKG 12 Lead [EKG Documentation Completion] [RC] STAT
--- NOTE | 2020-06-04 04:06 | PCM.HP ---
H&P History of Present Illness - General Date of Service: 06/04/20 Admit Problem/Dx: Admission Diagnosis/Problem Admission Diagnosis/Problem Chest pain Source of Information: Patient History Limitations: Reports: No Limitations - History of Present Illness Initial Comments - Free Text/Narative: Patient presented with a 5 day history of intermittent chest pain. He reports that he does peritoneal dialysis at home, but thinks he was having too much fluid removed during his sessions. He saus he presented to the ED 5 days ago with some abdominal discomfort and was given Nitrofurantoin for a possible UTI. That night, when he got home, he developed a sharp anterior chest pain. He thought this was a side effect of the medication. He filled the prescription of Nitrofurantoin on Tuesday, and again had a similar chest pain after taking it. He saw his director of leadership development who thought he was volume overloaded and dialyzed about 7 lb of fluid off. Patient returned to the ED again last night with another episode of sharp anterior chest pain. He reports that it it worse with breathing in. Pain resolved in the ED. EKG was negative for acute ST changes and troponin was also negative. He had elevated D-Dimer and a CT for PE was obtained. This was negative. Mid-Sternal Pain Score (Numeric/FACES): 0 - Related Data Allergies/Adverse Reactions: Allergies Allergy/AdvReac Type Severity Reaction Status Date / Time oxycodone [From Percocet] Allergy Itching Verified 06/04/20 03:09 Penicillins Allergy Rash Verified 06/04/20 03:09 Home Medications: Home Meds Calcium Acetate [PhosLo] 667 mg PO DAILY 06/03/20 [History] Metoprolol Tartrate 12.5 mg PO BID 06/03/20 [History] Aspirin 81 mg PO DAILY 06/04/20 [History] Past Medical History - Past Health History Medical/Surgical History: Denies Medical/Surgical History HEENT History: Reports: Hard of Hearing, Impaired Vision Other HEENT History: reading glasses Cardiovascular History: Reports: None Respiratory History: Reports: None Gastrointestinal History: Reports: None Genitourinary History: Reports: None, Dialysis, Dialysis, Peritoneal, Other (See Below) Other Genitourinary History: Was told his kidneys "need some work". Musculoskeletal History: Reports: Fracture Neurological History: Reports: None Psychiatric History: Reports: None Endocrine/Metabolic History: Reports: None Hematologic History: Reports: None Immunologic History: Reports: None Oncologic (Cancer) History: Reports: None Dermatologic History: Reports: None - Infectious Disease History Infectious Disease History: Reports: Measles - Past Surgical History Head Surgeries/Procedures: Reports: None GI Surgical History: Reports: Hernia Repair/Other Social & Family History - Family History Family Medical History: Noncontributory - Tobacco Use Smoking Status *Q: Never Smoker Second Hand Smoke Exposure: No - Caffeine Use Caffeine Use: Reports: None Caffeine Use Comment: occassional - Recreational Drug Use Recreational Drug Use: No H&P Review of Systems - Review of Systems: Review Of Systems: See Below General: Reports: No Symptoms HEENT: Reports: No Symptoms Pulmonary: Reports: No Symptoms Cardiovascular: Reports: No Symptoms Gastrointestinal: Reports: No Symptoms Genitourinary: Reports: No Symptoms Musculoskeletal: Reports: No Symptoms Skin: Reports: No Symptoms Psychiatric: Reports: No Symptoms Neurological: Reports: No Symptoms Hematologic/Lymphatic: Reports: No Symptoms Immunologic: Reports: No Symptoms Exam - Exam Exam: See Below - Vital Signs Vital Signs: Last Vital Signs Temp 98.0 F 06/04/20 03:08 Pulse 64 06/04/20 03:08 Resp 16 06/04/20 03:08 BP 148/49 H 06/04/20 03:08 Pulse Ox 99 06/04/20 03:08 Weight: 174 lb 6.4 oz - Exam General: Alert, Oriented, Cooperative HEENT: Conjunctiva Clear, Hearing Intact, Pupils Equal Neck: Supple Lungs: Clear to Auscultation, Normal Respiratory Effort Cardiovascular: Regular Rate, Regular Rhythm GI/Abdominal Exam: Normal Bowel Sounds, Non-Tender, No Distention Back Exam: Normal Inspection Extremities: Normal Inspection, Normal Range of Motion, No Pedal Edema Skin: Warm, Dry, Intact Neurological: Cranial Nerves Intact, Reflexes Equal Bilateral Neuro Extensive - Mental Status: Alert, Oriented x3, Normal Mood/Affect, Memory Intact Neuro Extensive - Motor, Sensory, Reflexes: CN II-XII Intact, Normal Gait Psychiatric: Alert, Normal Affect - Patient Data Lab Results Last 24 hrs: Laboratory Results - last 24 hr 06/03/20 06/03/20 06/03/20 Range/Units 20:55 20:55 20:55 WBC 6.8 (5.0-10.0) 10^3/uL RBC 3.53 L (4.6-6.2) 10^6/uL Hgb 10.5 L (14.0-18.0) g/dL Hct 31.1 L (40.0-54.0) % MCV 88.1 (80-100) fL MCH 29.7 (27.0-34.0) pg MCHC 33.8 (33.0-35.0) g/dL Plt Count 163 (150-450) 10^3/uL Neut % (Auto) 62.1 (42.2-75.2) % Lymph % (Auto) 23.6 (20.5-50.1) % [place] % (Auto) 11.6 H (2-8) % Eos % (Auto) 2.4 (1.0-3.0) % Baso % (Auto) 0.3 (0.0-1.0) % PT 10.8 (9.0-12.0) SEC INR 1.1 (0.9-1.2) D-Dimer, Quantitative 1210 H (0-400) ng/mL Sodium 140 (136-145) mmol/L Potassium 3.5 D (3.5-5.1) mmol/L Chloride 103 (98-107) mmol/L Carbon Dioxide 32 D (21-32) mmol/L Anion Gap 8.5 (7-13) mEq/L BUN 28 H D (7-18) mg/dL Creatinine 4.69 H D (0.70-1.30) mg/dL Est Cr Clr Drug Dosing 13.57 mL/min Estimated GFR (MDRD) 12 BUN/Creatinine Ratio 6.0 (No establ ref range) Glucose 148 H (74-99) mg/dL Calcium 7.2 L (8.5-10.1) mg/dL Magnesium 1.5 L (1.8-2.4) mg/dL Total Bilirubin 0.3 (0.2-1.0) mg/dL AST 23 (15-37) U/L ALT 24 (16-63) U/L Alkaline Phosphatase 249 H (46-116) U/L Troponin I 0.041 (0.000-0.056) ng/mL B-Natriuretic Peptide 1050 H (0-100) pg/ml Total Protein 5.4 L (6.4-8.2) g/dL Albumin 2.2 L (3.4-5.0) g/dL Globulin 3.2 Albumin/Globulin Ratio 0.69 Amylase 63 (25-115) U/L 06/04/20 Range/Units 01:03 WBC (5.0-10.0) 10^3/uL RBC (4.6-6.2) 10^6/uL Hgb (14.0-18.0) g/dL Hct (40.0-54.0) % MCV (80-100) fL MCH (27.0-34.0) pg MCHC (33.0-35.0) g/dL Plt Count (150-450) 10^3/uL Neut % (Auto) (42.2-75.2) % Lymph % (Auto) (20.5-50.1) % [place] % (Auto) (2-8) % Eos % (Auto) (1.0-3.0) % Baso % (Auto) (0.0-1.0) % PT (9.0-12.0) SEC INR (0.9-1.2) D-Dimer, Quantitative (0-400) ng/mL Sodium (136-145) mmol/L Potassium (3.5-5.1) mmol/L Chloride (98-107) mmol/L Carbon Dioxide (21-32) mmol/L Anion Gap (7-13) mEq/L BUN (7-18) mg/dL Creatinine (0.70-1.30) mg/dL Est Cr Clr Drug Dosing mL/min Estimated GFR (MDRD) BUN/Creatinine Ratio (No establ ref range) Glucose (74-99) mg/dL Calcium (8.5-10.1) mg/dL Magnesium (1.8-2.4) mg/dL Total Bilirubin (0.2-1.0) mg/dL AST (15-37) U/L ALT (16-63) U/L Alkaline Phosphatase (46-116) U/L Troponin I 0.055 (0.000-0.056) ng/mL B-Natriuretic Peptide (0-100) pg/ml Total Protein (6.4-8.2) g/dL Albumin (3.4-5.0) g/dL Globulin Albumin/Globulin Ratio Amylase (25-115) U/L Result Diagrams: 06/03/20 20:55 06/03/20 20:55 Problem List Initiated/Reviewed/Updated: Yes Orders Last 24hrs: Active Orders 24 hr Category Date Time Status Admission Diagnosis [ADT] Stat ADT 06/04/20 02:39 Ordered Admission Status [Patient Status] [ADT] Routine ADT 06/04/20 02:39 Active Admission Status [Patient Status] [ADT] Routine ADT 06/04/20 03:48 Active Patient Status [ADT] Routine ADT 06/04/20 03:51 Ordered Cardiac Monitoring [RC] . DIRECTED Care 06/03/20 20:58 Active Cardiac Monitoring [RC] . DIRECTED Care 06/04/20 02:39 Active EKG 12 Lead [EKG Documentation Completion] [RC] STAT Care 06/03/20 23:27 Active EKG Documentation Completion [RC] STAT Care 06/03/20 20:59 Active Oxygen Therapy [RC] PRN Care 06/04/20 03:51 Ordered Up ad Reina [RC] ASDIRECTED Care 06/04/20 03:50 Ordered VTE/DVT Education [RC] PER UNIT ROUTINE Care 06/04/20 03:51 Ordered Vital Signs [RC] Q4H Care 06/04/20 03:51 Ordered Regular Diet [DIET] Diet 06/04/20 Breakfast Ordered TROPONIN I [CHEM] Routine Lab 06/04/20 07:00 Ordered Resuscitation Status Routine Resus Stat 06/04/20 03:50 Ordered Assessment/Plan Comment:: 1. chest pain: Pleuritic intermittent chest pain with negative EKG and troponin. CT for PE negative. - Repeat troponin in 6 hours - EKG at necessary - Sublingual nitroglycerin as needed 2. Chronic anemia - Hb at baseline 3. ESRD -On peritoneal dialysis. Can follow up with nephrology at discharge
[2020-06-04] MEDS ORDERED: Heparin Sodium/0.45% NaCl 25,000 UNITS/500 ML BAG IV SCH (11:15)
[2020-06-04] MEDS ORDERED: Nitroglycerin 0.4 MG Tab.SL SL PRN (11:32)
[2020-06-04] MEDS ORDERED: Heparin Sodium 5,000 Units/ML Vial IVPUSH ONE (11:49)
[2020-06-04 12:16] VITALS: BP 140/60
[2020-06-04 12:23] VITALS: PULSE 75
--- NOTE | 2020-06-04 12:30 | PCM.DCSUM1 ---
Discharge Summary - Hospital Course Free Text/Narrative:: Patient presented with a 5 day history of intermittent chest pain. He reports that he does peritoneal dialysis at home, but thinks he was having too much fluid removed during his sessions. He says he presented to the ED 5 days ago with some abdominal discomfort and was given Nitrofurantoin for a possible UTI. That night, when he got home, he developed a sharp anterior chest pain. He thought this was a side effect of the medication. He filled the prescription of Nitrofurantoin on Tuesday, and again had a similar chest pain after taking it. He saw his staff nuclear weapons officer who thought he was volume overloaded and dialyzed about 7 lb of fluid off. Patient returned to the ED again last night with another episode of sharp anterior chest pain. He reports that it is worse with breathing in. Pain resolved in the ED. EKG was negative for acute ST changes and troponin was also negative. He had elevated D-Dimer and a CT for PE was obtained. This was negative. He received ASA 324 mg x1. Patient's chest pain return again very briefly, resoling before intervention. Repeat troponin was elevated at 0.059. Repeat EKG unremarkable. He was started on heparin drip and transferred to [facility]. Diagnosis: Stroke: No - Discharge Data Discharge Date: 06/04/20 Discharge Disposition: DC/Tfer to Acute Hospital 02 Condition: Good - Referral to Home Health Primary Care Physician: Ronel Salazar NP - Discharge Diagnosis/Problem(s) (1) Chest pain SNOMED Code(s): 44753272 ICD Code: R07.9 - CHEST PAIN, UNSPECIFIED Status: Acute Current Visit: No Qualifiers: Chest pain type: unspecified Qualified Code(s): R07.9 - Chest pain, unspecified - Discharge Plan *PRESCRIPTION DRUG MONITORING PROGRAM REVIEWED*: Not Applicable *COPY OF PRESCRIPTION DRUG MONITORING REPORT IN PATIENT BOWEN: Not Applicable Home Medications: Home Meds Calcium Acetate [PhosLo] 667 mg PO DAILY 06/03/20 [History] Metoprolol Tartrate 12.5 mg PO BID 06/03/20 [History] Aspirin 81 mg PO DAILY 06/04/20 [History] Forms: ED Department Discharge Referrals: Ronel Salazar NP [Primary Care Provider] - - Discharge Summary/Plan Comment DC Time >30 min.: Yes - General Info Date of Service: 06/04/20 - Review of Systems General: Reports: No Symptoms HEENT: Reports: No Symptoms Pulmonary: Reports: No Symptoms Cardiovascular: Reports: No Symptoms Gastrointestinal: Reports: No Symptoms Genitourinary: Reports: No Symptoms Musculoskeletal: Reports: No Symptoms Skin: Reports: No Symptoms Neurological: Reports: No Symptoms Psychiatric: Reports: No Symptoms - Patient Data Vitals - Most Recent: Last Vital Signs Temp 98.6 F 06/04/20 12:15 Pulse 70 06/04/20 12:15 Resp 22 H 06/04/20 12:15 BP 140/60 06/04/20 12:15 Pulse Ox 96 06/04/20 12:15 Weight - Most Recent: 174 lb 6.4 oz Lab Results - Last 24 hrs: Laboratory Results - last 24 hr 06/03/20 06/03/20 06/03/20 Range/Units 20:55 20:55 20:55 WBC 6.8 (5.0-10.0) 10^3/uL RBC 3.53 L (4.6-6.2) 10^6/uL Hgb 10.5 L (14.0-18.0) g/dL Hct 31.1 L (40.0-54.0) % MCV 88.1 (80-100) fL MCH 29.7 (27.0-34.0) pg MCHC 33.8 (33.0-35.0) g/dL Plt Count 163 (150-450) 10^3/uL Neut % (Auto) 62.1 (42.2-75.2) % Lymph % (Auto) 23.6 (20.5-50.1) % [place] % (Auto) 11.6 H (2-8) % Eos % (Auto) 2.4 (1.0-3.0) % Baso % (Auto) 0.3 (0.0-1.0) % PT 10.8 (9.0-12.0) SEC INR 1.1 (0.9-1.2) D-Dimer, Quantitative 1210 H (0-400) ng/mL Sodium 140 (136-145) mmol/L Potassium 3.5 D (3.5-5.1) mmol/L Chloride 103 (98-107) mmol/L Carbon Dioxide 32 D (21-32) mmol/L Anion Gap 8.5 (7-13) mEq/L BUN 28 H D (7-18) mg/dL Creatinine 4.69 H D (0.70-1.30) mg/dL Est Cr Clr Drug Dosing 13.57 mL/min Estimated GFR (MDRD) 12 BUN/Creatinine Ratio 6.0 (No establ ref range) Glucose 148 H (74-99) mg/dL Calcium 7.2 L (8.5-10.1) mg/dL Magnesium 1.5 L (1.8-2.4) mg/dL Total Bilirubin 0.3 (0.2-1.0) mg/dL AST 23 (15-37) U/L ALT 24 (16-63) U/L Alkaline Phosphatase 249 H (46-116) U/L Troponin I 0.041 (0.000-0.056) ng/mL B-Natriuretic Peptide 1050 H (0-100) pg/ml Total Protein 5.4 L (6.4-8.2) g/dL Albumin 2.2 L (3.4-5.0) g/dL Globulin 3.2 Albumin/Globulin Ratio 0.69 Amylase 63 (25-115) U/L 06/04/20 06/04/20 Range/Units 01:03 07:03 WBC (5.0-10.0) 10^3/uL RBC (4.6-6.2) 10^6/uL Hgb (14.0-18.0) g/dL Hct (40.0-54.0) % MCV (80-100) fL MCH (27.0-34.0) pg MCHC (33.0-35.0) g/dL Plt Count (150-450) 10^3/uL Neut % (Auto) (42.2-75.2) % Lymph % (Auto) (20.5-50.1) % [place] % (Auto) (2-8) % Eos % (Auto) (1.0-3.0) % Baso % (Auto) (0.0-1.0) % PT (9.0-12.0) SEC INR (0.9-1.2) D-Dimer, Quantitative (0-400) ng/mL Sodium (136-145) mmol/L Potassium (3.5-5.1) mmol/L Chloride (98-107) mmol/L Carbon Dioxide (21-32) mmol/L Anion Gap (7-13) mEq/L BUN (7-18) mg/dL Creatinine (0.70-1.30) mg/dL Est Cr Clr Drug Dosing mL/min Estimated GFR (MDRD) BUN/Creatinine Ratio (No establ ref range) Glucose (74-99) mg/dL Calcium (8.5-10.1) mg/dL Magnesium (1.8-2.4) mg/dL Total Bilirubin (0.2-1.0) mg/dL AST (15-37) U/L ALT (16-63) U/L Alkaline Phosphatase (46-116) U/L Troponin I 0.055 0.059 H* (0.000-0.056) ng/mL B-Natriuretic Peptide (0-100) pg/ml Total Protein (6.4-8.2) g/dL Albumin (3.4-5.0) g/dL Globulin Albumin/Globulin Ratio Amylase (25-115) U/L Med Orders - Current: Current Medications Heparin Sodium/Sodium Chloride (Heparin 25,000 Units In 1/2 Ns 500 Ml) 25,000 units in 500 mls @ 18.986 mls/hr IV TITRATE DEEPIKA; Protocol Nitroglycerin (Nitrostat) 0.4 mg SL Q5M PRN PRN Reason: Chest Pain Discontinued Medications Al Hydroxide/Mg Hydroxide (Gi Cocktail) 30 ml PO ONETIME ONE Stop: 06/03/20 22:38 Last Admin: 06/03/20 22:41 Dose: 30 ml Documented by: Aspirin (Aspirin) 324 mg PO ONETIME ONE Stop: 06/03/20 22:53 Last Admin: 06/03/20 23:05 Dose: 324 mg Documented by: Heparin Sodium (Porcine) (Heparin Sodium) 4,000 units IVPUSH ONETIME ONE Stop: 06/04/20 11:50 Iopamidol (Isovue-370 (76%)) 100 ml IVPUSH ONETIME ONE Stop: 06/03/20 22:08 Last Admin: 06/03/20 22:39 Dose: 68 ml Documented by: - Exam General: Reports: Alert, Oriented HEENT: Reports: Pupils Equal, Pupils Reactive Neck: Reports: Supple Lungs: Reports: Clear to Auscultation, Normal Respiratory Effort Cardiovascular: Reports: Regular Rate, Regular Rhythm GI/Abdominal Exam: Normal Bowel Sounds, Soft, Non-Tender, No Distention Back Exam: Reports: Normal Inspection Extremities: Normal Inspection, Normal Range of Motion, No Pedal Edema Skin: Reports: Warm, Dry, Intact Psy/Mental Status: Reports: Alert, Normal Affect
== END 2020-06-04 11:45 ==
LOC: DL.ED 20:33 → DL.MS 06-04 02:39
PROVIDERS: ADMIT Internal Medicine; ATTEND Internal Medicine
DX: R07.81 Pleurodynia (principal); R79.1 Abnormal coagulation profile; N18.6 End stage renal disease; D63.1 Anemia in chronic kidney disease; Z99.2 Dependence on renal dialysis; Z88.0 Allergy status to penicillin; Z88.6 Allergy status to analgesic agent
CPT/HCPCS: 36415; 71045; 71260; 80053; 82150; 83735; 83880; 84484; 85025; 85379; 85610; 85730; 93005; 96374; A9270-GY; G0378; J1644; Q9967

== ENCOUNTER → 2020-08-20 | Emergency (ER) | payer MEDICARE, OTHER ==
[~2020-08-20] MED LIST: Morphine 2 MG/ML SYRINGE IV ONE; Morphine 2 MG/ML SYRINGE ONE; Ondansetron 4 MG/2 ML SDV IV ONE; Ondansetron 4 MG/2 ML SDV ONE
--- NOTE | 2020-08-20 07:09 | CR ---
PROCEDURE INFORMATION: Exam: XR Chest, 1 View Exam date and time: 08/20/2020 4:11 AM Age: 74 years old Clinical indication: Other: SOB, chest pain TECHNIQUE: Imaging protocol: XR of the chest Views: 1 view. COMPARISON: No relevant prior studies available. FINDINGS: Lungs: Mild pulmonary vascular congestion. Pleural space: Unremarkable. No pleural effusion. No pneumothorax. Heart/Mediastinum: Enlarged cardiac silhouette. Bones/joints: Unremarkable. IMPRESSION: Enlarged cardiac silhouette and mild pulmonary vascular congestion.
[2020-08-20 08:16] LABS: SODIUM,NA 135 mmol/L (138-146)
[2020-08-20 08:17] LABS: ANION GAP 15.1 mEq/L (7-13); CHLORIDE,CL 101 mmol/L (98-109)
== END ==
LOC: DL.ED 03:48
DX: I21.4 Non-ST elevation (NSTEMI) myocardial infarction (principal); I20.9 Angina pectoris, unspecified; Z20.828 Contact with and (suspected) exposure to other viral communicable diseases
CPT/HCPCS: 36415; 71045; 80053; 83880; 84484; 85025; 85379; 85610; 96374; 96375; 99285; J2270; J2405; U0002

== ENCOUNTER 2020-12-16 18:44 | Emergency (ER) | payer MEDICARE, OTHER ==
[2020-12-16 19:55] VITALS: BP 108/69; PULSE 106
== END 2020-12-16 20:25 | disposition left against medical advice (07) ==
LOC: DL.ED 18:44
DX: Z53.21 Procedure and treatment not carried out due to patient leaving prior to being seen by health care provider (principal)

== ENCOUNTER 2021-01-02 21:59 | Emergency (ER) | payer MEDICARE, OTHER ==
[2021-01-02 22:54] VITALS: BP 117/56; PULSE 92
--- NOTE | 2021-01-02 23:10 | EDM.PDOC ---
ED HPI GENERAL MEDICAL PROBLEM - General Chief Complaint: Skin Complaint Stated Complaint: SLEEP BODY Time Seen by Provider: 01/02/21 23:01 Source of Information: Reports: Patient History Limitations: Reports: No Limitations - History of Present Illness INITIAL COMMENTS - FREE TEXT/NARRATIVE: Patient comes emergency department today with complaints of not being able to sleep. This patient relates over the past 10 days he has developed the inability to go to sleep. He may sleep for 2 to 3 hours and then he wakes up and he is up for the rest of the day. He does take naps in the afternoon. He really is not overly tired the rest of the day. He is a peritoneal dialysis patient that is up on a regular basis changing his peritoneal dialysis during the night. There is been no change in his medication or any other social changes recently. He has no other body complaints. He does complain of generalized itching which she has had for many years. He denies any fever ch ills shortness of breath difficulty breathing cough congestion. Denies any racing thoughts anxieties or depressions. Denies any abdominal pain nausea or vomiting. He has tried some Benadryl as directed by his primary care provider and I gave him a dry mouth but he did not sleep. He states that he cannot take it anymore that he cannot sleep and it is driving him absolutely crazy although he is not overtly tired. No Covid exposure no Covid symptoms. - Related Data Allergies Allergy/AdvReac Type Severity Reaction Status Date / Time oxycodone [From Percocet] Allergy Itching Verified 01/03/21 15:09 Penicillins Allergy Rash Verified 01/03/21 15:09 Home Meds: Home Meds Calcium Acetate [PhosLo] 667 mg PO TID 06/03/20 [History] Metoprolol Tartrate 25 mg PO BID 06/03/20 [History] Aspirin 81 mg PO DAILY 06/04/20 [History] Cholecalciferol (Vitamin D3) [Vitamin D3] 1,000 units PO ASDIRECTED 09/23/20 [History] Melatonin 2 - 10 mg PO BEDTIME PRN 09/23/20 [History] Nitroglycerin 0.4 mg PO ASDIRECTED PRN 09/23/20 [History] Omeprazole 20 mg PO DAILY 09/23/20 [History] Warfarin [Coumadin] 5 mg PO DAILY 09/23/20 [History] Cholecalciferol (Vitamin D3) [Vitamin D] 1,000 unit PO DAILY 12/24/20 [History] Clopidogrel [Plavix] 75 mg PO DAILY 12/24/20 [History] atorvaSTATin [Lipitor] 20 mg PO BEDTIME 12/24/20 [History] Past Medical History - Past Health History Medical/Surgical History: Denies Medical/Surgical History HEENT History: Reports: Hard of Hearing, Impaired Vision Other HEENT History: reading glasses Cardiovascular History: Reports: Heart Failure, Heart Murmur, High Cholesterol, Hypertension, Stents Respiratory History: Reports: None Gastrointestinal History: Reports: None Genitourinary History: Reports: None, Dialysis, Other (See Below) Other Genitourinary History: Was told his kidneys "need some work". Musculoskeletal History: Reports: Fracture Neurological History: Reports: None Psychiatric History: Reports: None Endocrine/Metabolic History: Reports: None Hematologic History: Reports: None Immunologic History: Reports: None Oncologic (Cancer) History: Reports: None Dermatologic History: Reports: None - Infectious Disease History Infectious Disease History: Reports: Measles - Past Surgical History Head Surgeries/Procedures: Reports: None Cardiovascular Surgical History: Reports: Coronary Artery Stent Other Cardiovascular Surgeries/Procedures: 08/20/2020 GI Surgical History: Reports: Hernia Repair/Other Social & Family History - Family History Family Medical History: No Pertinent Family History - Tobacco Use Tobacco Use Status *Q: Never Tobacco User Second Hand Smoke Exposure: No - Caffeine Use Caffeine Use: Reports: Coffee Caffeine Use Comment: occassional - Recreational Drug Use Recreational Drug Use: No ED ROS GENERAL - Review of Systems Review Of Systems: Comprehensive ROS is negative, except as noted in HPI. ED EXAM, SKIN/RASH Exam: See Below (I think) Exam Limited By: No Limitations General Appearance: Alert, WD/WN, Anxious Eye Exam: Bilateral Eye: EOMI Ears: Normal External Exam Nose: Normal Inspection Throat/Mouth: Normal Inspection Head: Atraumatic, Normocephalic Neck: Normal Inspection, Supple, Non-Tender, Full Range of Motion Respiratory/Chest: No Respiratory Distress, Lungs Clear, Chest Non-Tender Cardiovascular: Normal Peripheral Pulses, Regular Rate, Rhythm, Systolic Murmur (3/5 known from his past. Had a disection in the past. ) Peripheral Pulses: 2+: Radial (L), Radial (R), Posterior Tibial (L), Posterior Tibial (R), Dorsalis Pedis (L), Dorsalis Pedis (R) GI/Abdominal: Normal Bowel Sounds, Soft, Non-Tender (Male) Exam: Deferred Rectal (Males) Exam: Deferred Back Exam: Normal Inspection Extremities: Normal Inspection Neurological: Alert, Oriented, Normal Cognition, No Motor/Sensory Deficits Psychiatric: Anxious Skin: Warm, Dry, Intact, Normal Color Course - Vital Signs Last Recorded V/S: Last Vital Signs Temp 97.2 F 01/02/21 22:53 Pulse 92 01/02/21 22:53 Resp 20 01/02/21 22:53 BP 117/56 L 01/02/21 22:53 Pulse Ox 99 01/02/21 22:53 - Orders/Labs/Meds Meds: Medications Discontinued Medications Generic Name Dose Route Start Last Admin Trade Name Ester PRN Reason Stop Dose Admin Hydroxyzine HCl 25 mg 01/02/21 23:13 01/02/21 23:34 Hydroxyzine Hcl 25 Mg Tab PO 01/02/21 23:14 Not Given ONETIME ONE - Re-Assessments/Exams Free Text/Narrative Re-Assessment/Exam: 01/03/21 19:43 I have concerns with his age jumping right into something like ambien for this gentlemen. we will try vistarl at this time and have him follow up with primary care. He was comfortable with this plan and his questions were answered. Departure - Departure Time of Disposition: 23:08 Disposition: Home, Self-Care 01 Clinical Impression: Unable to sleep Qualifiers: Insomnia type: unspecified Qualified Code(s): G47.00 - Insomnia, unspecified - Discharge Information Instructions: Insomnia Referrals: PCP,None [Primary Care Provider] - Forms: ED Department Discharge Additional Instructions: We will try Hydroxyzine for insomnia. 25mg at bedtime. 1 dispensed from the ED. Rx given to the patient. Caution sedation with this medication. Do not take this medication with the Benadryl as they will cause a lot of sedation. Return to the ED if new or worsening symptoms. Follow up with PCP next week. Sepsis Event Note (ED) - Evaluation Sepsis Screening Result: No Definite Risk
[2021-01-02] MEDS ORDERED: hydrOXYzine HCl 25 MG Tab PO ONE (23:13)
== END 2021-01-02 23:30 | disposition home or self-care (01) ==
LOC: DL.ED 21:59
DX: G47.00 Insomnia, unspecified (principal); E78.00 Pure hypercholesterolemia, unspecified; I11.0 Hypertensive heart disease with heart failure; I50.9 Heart failure, unspecified; Z88.5 Allergy status to narcotic agent; Z88.0 Allergy status to penicillin; Z79.82 Long term (current) use of aspirin; Z79.02 Long term (current) use of antithrombotics/antiplatelets; Z79.899 Other long term (current) drug therapy; Z79.01 Long term (current) use of anticoagulants
CPT/HCPCS: 99283

== ENCOUNTER 2021-07-04 21:36 | Emergency (ER) | payer MEDICARE ==
[2021-07-04] MEDS ORDERED: Furosemide 40 MG Tab PO ONE (21:37)
[2021-07-04] MEDS ORDERED: Aspirin 81 MG Tab.Chew PO ONE (21:45)
[2021-07-04] MEDS ORDERED: Nitroglycerin 0.4 MG Tab.SL SL ONE (21:55)
--- NOTE | 2021-07-04 22:12 | EDM.PDOC ---
ED HPI GENERAL MEDICAL PROBLEM - General Chief Complaint: Chest Pain Stated Complaint: CHESTPAINS AND SHORTNESS OF BREATH Time Seen by Provider: 07/04/21 22:08 Source of Information: Reports: Patient, RN History Limitations: Reports: No Limitations - History of Present Illness INITIAL COMMENTS - FREE TEXT/NARRATIVE: ED with c/o mid chest pain onset 03/21 took one nitro and had peritoneal dialysis pain now 11/19. Some SOB, no nausea or sweating. No cough. Has not felt well all day, unable to give more specific description. 3# weight gain over past 3 days. Poor appetite. No fever. felt cold today. Prior NM and stents. Hx of A fib. Anterior Chest Pain Score (Numeric/FACES): 3 - Related Data Allergies Allergy/AdvReac Type Severity Reaction Status Date / Time oxycodone [From Percocet] Allergy Itching Verified 07/04/21 21:57 Penicillins Allergy Rash Verified 07/04/21 21:57 Home Meds: Home Meds Calcium Acetate [PhosLo] 667 mg PO TID 06/03/20 [History] Metoprolol Tartrate 12.5 mg PO DAILY 06/03/20 [History] Nitroglycerin 0.4 mg PO ASDIRECTED PRN 09/23/20 [History] Omeprazole 20 mg PO BID 09/23/20 [History] Warfarin [Coumadin] 5 mg PO DAILY 09/23/20 [History] Clopidogrel [Plavix] 75 mg PO DAILY 12/24/20 [History] atorvaSTATin [Lipitor] 20 mg PO BEDTIME 12/24/20 [History] Calcitriol 1 mg PO DAILY 07/04/21 [History] Cinacalcet [Sensipar] 30 mg PO DAILY 07/04/21 [History] Furosemide [Lasix] 80 mg PO DAILY 07/04/21 [History] Mirtazapine [Remeron] 7.5 mg PO DAILY 07/04/21 [History] Past Medical History - Past Health History Medical/Surgical History: Denies Medical/Surgical History HEENT History: Reports: Hard of Hearing, Impaired Vision Other HEENT History: reading glasses Cardiovascular History: Reports: Heart Failure, Heart Murmur, High Cholesterol, Hypertension, NM, Stents Respiratory History: Reports: None Gastrointestinal History: Reports: None Genitourinary History: Reports: Dialysis, Dialysis, Peritoneal, Other (See Below) Other Genitourinary History: Was told his kidneys "need some work". Musculoskeletal History: Reports: Fracture Neurological History: Reports: None Psychiatric History: Reports: None Endocrine/Metabolic History: Reports: None Hematologic History: Reports: None Immunologic History: Reports: None Oncologic (Cancer) History: Reports: None Dermatologic History: Reports: None - Infectious Disease History Infectious Disease History: Reports: Measles - Past Surgical History Head Surgeries/Procedures: Reports: None Cardiovascular Surgical History: Reports: Coronary Artery Stent Other Cardiovascular Surgeries/Procedures: 08/20/2020 GI Surgical History: Reports: Hernia Repair/Other, Other (See Below) Other GI Surgeries/Procedures: peritoneal dialysis Social & Family History - Family History Family Medical History: No Pertinent Family History - Caffeine Use Caffeine Use: Reports: Coffee Caffeine Use Comment: occassional ED ROS GENERAL - Review of Systems Review Of Systems: Comprehensive ROS is negative, except as noted in HPI. ED EXAM, GENERAL - Physical Exam Exam: See Below Exam Limited By: No Limitations General Appearance: Alert, Anxious, Mild Distress Ears: Hearing Grossly Normal Nose: Normal Inspection Throat/Mouth: Normal Inspection Head: Atraumatic, Normocephalic Neck: Normal Inspection Respiratory/Chest: Decreased Breath Sounds (bases) Cardiovascular: Systolic Murmur, Irregularly Irregular. No: No Edema GI/Abdominal: No Distention, Abnormal Bowel Sounds (decreased). No: Tender Extremities: Pedal Edema (1-2+) Neurological: Alert, Oriented, Normal Cognition Psychiatric: Normal Affect, Anxious Skin Exam: Warm, Dry, Intact #1 Interpretation EKG Date: 07/04/21 Time: 21:49 Rhythm: A-Fib Rate (Beats/Min): 72 P-Wave: Variable #2 Interpretation EKG Date: 07/05/21 Time: 00:03 Rhythm: A-Fib Rate (Beats/Min): 73 P-Wave: Variable Comparison: No Change EKG Interpretation Comments: A- fib Course - Vital Signs Last Recorded V/S: Last Vital Signs Temp 98.2 F 07/05/21 01:14 Pulse 68 07/05/21 01:14 Resp 14 07/05/21 01:14 BP 106/53 L 07/05/21 01:14 Pulse Ox 96 07/05/21 01:14 - Orders/Labs/Meds Orders: Active Orders 24 hr Category Date Time Status CULTURE BLOOD [BC] Stat Lab 07/04/21 22:05 Results CULTURE BLOOD [BC] Stat Lab 07/04/21 22:10 Results Blood Culture x2 Reflex Set [OM.PC] Stat Oth 07/04/21 21:47 Ordered Labs: Laboratory Tests 07/04/21 07/04/21 07/04/21 Range/Units 22:00 22:05 22:05 WBC 8.5 (5.0-10.0) 10^3/uL RBC 4.07 L (4.6-6.2) 10^6/uL Hgb 12.5 L D (14.0-18.0) g/dL Hct 36.7 L (40.0-54.0) % MCV 90.2 (80-100) fL MCH 30.7 (27.0-34.0) pg MCHC 34.1 (33.0-35.0) g/dL Plt Count 204 (150-450) 10^3/uL Neut % (Auto) 58.3 (42.2-75.2) % Lymph % (Auto) 24.7 (20.5-50.1) % [place] % (Auto) 11.0 H (2-8) % Eos % (Auto) 5.5 H (1.0-3.0) % Baso % (Auto) 0.5 (0.0-1.0) % PT 18.8 H (9.0-12.0) SEC INR 1.9 H (0.9-1.2) Sodium (136-145) mmol/L Potassium (3.5-5.1) mmol/L Chloride (98-107) mmol/L Carbon Dioxide (21-32) mmol/L Anion Gap (7-13) mEq/L BUN (7-18) mg/dL Creatinine (0.70-1.30) mg/dL Est Cr Clr Drug Dosing mL/min Estimated GFR (MDRD) BUN/Creatinine Ratio (No establ ref range) Glucose (70-99) mg/dL Lactic Acid (0.4-2.0) mmol/L Calcium (8.5-10.1) mg/dL Magnesium (1.8-2.4) mg/dL Total Bilirubin (0.2-1.0) mg/dL AST (15-37) U/L ALT (16-63) U/L Alkaline Phosphatase (46-116) U/L Troponin I High Sens (<=76) pg/mL B-Natriuretic Peptide (0-100) pg/ml Total Protein (6.4-8.2) g/dL Albumin (3.4-5.0) g/dL Globulin Albumin/Globulin Ratio Amylase (25-115) U/L Lipase (73-393) U/L TSH, Ultra Sensitive (0.36-3.74) uIU/mL Influenza Type A RNA Negative (NEGATIVE) Influenza Type B RNA Negative (NEGATIVE) SARS-CoV-2 RNA (TRYONE) Negative (NEGATIVE) 07/04/21 07/04/21 07/04/21 Range/Units 22:05 22:05 22:05 WBC (5.0-10.0) 10^3/uL RBC (4.6-6.2) 10^6/uL Hgb (14.0-18.0) g/dL Hct (40.0-54.0) % MCV (80-100) fL MCH (27.0-34.0) pg MCHC (33.0-35.0) g/dL Plt Count (150-450) 10^3/uL Neut % (Auto) (42.2-75.2) % Lymph % (Auto) (20.5-50.1) % [place] % (Auto) (2-8) % Eos % (Auto) (1.0-3.0) % Baso % (Auto) (0.0-1.0) % PT (9.0-12.0) SEC INR (0.9-1.2) Sodium 134 L (136-145) mmol/L Potassium 3.5 (3.5-5.1) mmol/L Chloride 96 L (98-107) mmol/L Carbon Dioxide 26 (21-32) mmol/L Anion Gap 15.5 H (7-13) mEq/L BUN 80 H (7-18) mg/dL Creatinine 9.99 H* (0.70-1.30) mg/dL Est Cr Clr Drug Dosing 6.28 mL/min Estimated GFR (MDRD) 5 BUN/Creatinine Ratio 8.0 (No establ ref range) Glucose 111 H (70-99) mg/dL Lactic Acid 0.9 (0.4-2.0) mmol/L Calcium 7.6 L (8.5-10.1) mg/dL Magnesium 1.7 L (1.8-2.4) mg/dL Total Bilirubin 0.4 (0.2-1.0) mg/dL AST 33 (15-37) U/L ALT 31 (16-63) U/L Alkaline Phosphatase 225 H (46-116) U/L Troponin I High Sens 45 (<=76) pg/mL B-Natriuretic Peptide 385 H (0-100) pg/ml Total Protein 5.8 L (6.4-8.2) g/dL Albumin 2.4 L (3.4-5.0) g/dL Globulin 3.4 Albumin/Globulin Ratio 0.71 Amylase 11 L (25-115) U/L Lipase 322 (73-393) U/L TSH, Ultra Sensitive 1.19 (0.36-3.74) uIU/mL Influenza Type A RNA (NEGATIVE) Influenza Type B RNA (NEGATIVE) SARS-CoV-2 RNA (TYRONE) (NEGATIVE) 07/05/21 Range/Units 00:14 WBC (5.0-10.0) 10^3/uL RBC (4.6-6.2) 10^6/uL Hgb (14.0-18.0) g/dL Hct (40.0-54.0) % MCV (80-100) fL MCH (27.0-34.0) pg MCHC (33.0-35.0) g/dL Plt Count (150-450) 10^3/uL Neut % (Auto) (42.2-75.2) % Lymph % (Auto) (20.5-50.1) % [place] % (Auto) (2-8) % Eos % (Auto) (1.0-3.0) % Baso % (Auto) (0.0-1.0) % PT (9.0-12.0) SEC INR (0.9-1.2) Sodium (136-145) mmol/L Potassium (3.5-5.1) mmol/L Chloride (98-107) mmol/L Carbon Dioxide (21-32) mmol/L Anion Gap (7-13) mEq/L BUN (7-18) mg/dL Creatinine (0.70-1.30) mg/dL Est Cr Clr Drug Dosing mL/min Estimated GFR (MDRD) BUN/Creatinine Ratio (No establ ref range) Glucose (70-99) mg/dL Lactic Acid (0.4-2.0) mmol/L Calcium (8.5-10.1) mg/dL Magnesium (1.8-2.4) mg/dL Total Bilirubin (0.2-1.0) mg/dL AST (15-37) U/L ALT (16-63) U/L Alkaline Phosphatase (46-116) U/L Troponin I High Sens 46 (<=76) pg/mL B-Natriuretic Peptide (0-100) pg/ml Total Protein (6.4-8.2) g/dL Albumin (3.4-5.0) g/dL Globulin Albumin/Globulin Ratio Amylase (25-115) U/L Lipase (73-393) U/L TSH, Ultra Sensitive (0.36-3.74) uIU/mL Influenza Type A RNA (NEGATIVE) Influenza Type B RNA (NEGATIVE) SARS-CoV-2 RNA (TYRONE) (NEGATIVE) Meds: Medications Discontinued Medications Generic Name Dose Route Start Last Admin Trade Name Freq PRN Reason Stop Dose Admin Aspirin 324 mg 07/04/21 21:45 07/04/21 22:27 Aspirin 81 Mg Tab.Chew PO 07/04/21 21:46 324 mg ONETIME ONE Administration Furosemide Confirm 07/05/21 01:28 07/05/21 01:36 Furosemide 40 Mg Tab Administered 07/05/21 01:29 Not Given Dose 80 mg .ROUTE .STK-MED ONE Nitroglycerin 0.4 mg 07/04/21 21:55 07/04/21 22:27 Nitroglycerin 0.4 Mg Tab.Sl SL 07/04/21 21:56 Not Given ONETIME ONE Departure - Departure Time of Disposition: 01:35 Disposition: Home, Self-Care 01 Condition: Good Clinical Impression: Nonspecific chest pain, Peritoneal dialysis catheter in place Instructions: Nonspecific Chest Pain, Adult, [id number] Forms: ED Department Discharge Additional Instructions: rest light activity follow with care provider early this week urgent follow up if recurrent chest pain fever, abdominal pain vomiting get medications refilled and take as directed Sepsis Event Note (ED) - Evaluation Sepsis Screening Result: No Definite Risk - Focused Exam Vital Signs: Vital Signs Temp Pulse Resp BP BP Pulse Ox 07/05/21 01:14 98.2 F 68 14 106/53 L 96 07/04/21 23:07 64 18 90/53 L 96 07/04/21 22:28 75 20 100/54 L 97 07/04/21 22:27 100/54 L 07/04/21 21:49 98.2 F 68 18 129/54 L 92 L - My Orders Last 24 Hours: My Active Orders 07/04/21 21:47 Blood Culture x2 Reflex Set [OM.PC] Stat 07/04/21 22:05 CULTURE BLOOD [BC] Stat 07/04/21 22:10 CULTURE BLOOD [BC] Stat - Assessment/Plan Last 24 Hours: My Active Orders 07/04/21 21:47 Blood Culture x2 Reflex Set [OM.PC] Stat 07/04/21 22:05 CULTURE BLOOD [BC] Stat 07/04/21 22:10 CULTURE BLOOD [BC] Stat
[2021-07-04 22:38] LABS: ANION GAP 15.5 mEq/L (7-13)
[2021-07-04 22:53] LABS: CORONAVIRUS COVID-19 NAA NEGATIVE (NEGATIVE)
--- NOTE | 2021-07-04 23:40 | CR ---
PROCEDURE INFORMATION: Exam: XR Chest Exam date and time: 07/04/2021 10:38 PM Age: 75 years old Clinical indication: Shortness of breath; Additional info: SOB TECHNIQUE: Imaging protocol: XR of the chest. Views: 1 view. COMPARISON: CR Chest 1V Frontal 08/20/2020 4:11 AM FINDINGS: Lungs: Minimal scattered patchy and reticular opacities are similar to prior and likely chronic. Pleural spaces: Blunting of the right costophrenic angle as before which may reflect small pleural effusion or chronic pleural thickening. No left pleural effusion. No pneumothorax. Heart/Mediastinum: Mild cardiomegaly similar to prior. Postsurgical changes from MitraClip. Bones/joints: No evidence of acute osseous abnormality. IMPRESSION: No radiographically apparent acute abnormality in the chest. No significant change from prior.
[2021-07-05 01:16] VITALS: BP 106/53; PULSE 68
[2021-07-05] MEDS ORDERED: Furosemide 40 MG Tab ONE (01:28)
== END 2021-07-05 01:37 | disposition home or self-care (01) ==
LOC: DL.ED 21:36
DX: T82.49XA Other complication of vascular dialysis catheter, initial encounter (principal); R07.9 Chest pain, unspecified; E78.00 Pure hypercholesterolemia, unspecified; I11.0 Hypertensive heart disease with heart failure; I50.9 Heart failure, unspecified; I25.2 Old myocardial infarction; Z88.0 Allergy status to penicillin; Z88.5 Allergy status to narcotic agent; Z95.5 Presence of coronary angioplasty implant and graft; Z79.899 Other long term (current) drug therapy; Z20.822 Contact with and (suspected) exposure to COVID-19; Z79.02 Long term (current) use of antithrombotics/antiplatelets; Z79.01 Long term (current) use of anticoagulants
CPT/HCPCS: 0240U; 36415; 71045; 80053; 82150; 83605; 83690; 83735; 83880; 84443; 84484; 85025; 85610; 87040; 93005; 99285; A9270

== ENCOUNTER 2022-05-07 19:47 | Emergency (ER) | payer MEDICARE, OTHER ==
[2022-05-07 20:16] VITALS: BP 141/67; PULSE 83
[2022-05-07 21:10] LABS: ANION GAP 17.7 mEq/L (7-13); CHLORIDE,CL 93 mmol/L (98-107); SODIUM,NA 134 mmol/L (136-145)
[2022-05-07 21:13] LABS: ESTIMATED GFR 4 mL/min (>=60)
== END 2022-05-07 22:20 | disposition home or self-care (01) ==
LOC: DL.ED 19:47
DX: R06.02 Shortness of breath (principal); R42 Dizziness and giddiness; E78.00 Pure hypercholesterolemia, unspecified; I11.0 Hypertensive heart disease with heart failure; I50.9 Heart failure, unspecified; I25.2 Old myocardial infarction; Z88.0 Allergy status to penicillin; Z88.5 Allergy status to narcotic agent; Z79.899 Other long term (current) drug therapy; Z79.01 Long term (current) use of anticoagulants; Z79.02 Long term (current) use of antithrombotics/antiplatelets; Z95.5 Presence of coronary angioplasty implant and graft; Z20.822 Contact with and (suspected) exposure to COVID-19
CPT/HCPCS: 36415; 71045; 80053; 81001; 83605; 83735; 83880; 84484; 85025; 85379; 85610; 87040; 93005; 93010; 99284; 99285; U0002

== ENCOUNTER 2022-08-21 10:43 | Emergency (ER) | payer MEDICARE, OTHER ==
[2022-08-21 11:22] VITALS: BP 86/55; PULSE 80
[2022-08-21] MEDS: Sodium Chloride 0.9% 10 ML Syringe FLUSH PRN ×2 (11:22→12:00)
[2022-08-21] MEDS ORDERED: Sodium Chloride 0.9% 500 ML IV SCH (12:00)
[2022-08-21 12:04] LABS: ANION GAP 14.1 mEq/L (7-13)
[2022-08-21 12:08] LABS: RESPIRATORY SYNCYTIAL VIR NAA NEGATIVE (NEGATIVE)
[2022-08-21 12:11] LABS: PTT,PARTIAL THROMBOPLSTIN TIME 28.1 SEC (22.0-34.0)
[2022-08-21 12:15] LABS: CORONAVIRUS COVID-19 NAA POSITIVE (NEGATIVE)
== END 2022-08-21 13:06 | disposition home or self-care (01) ==
LOC: DL.ED 10:43
DX: U07.1 COVID-19 (principal); I11.0 Hypertensive heart disease with heart failure; I50.9 Heart failure, unspecified; I25.2 Old myocardial infarction; E78.00 Pure hypercholesterolemia, unspecified; Z88.5 Allergy status to narcotic agent; Z88.0 Allergy status to penicillin; Z79.899 Other long term (current) drug therapy; Z79.02 Long term (current) use of antithrombotics/antiplatelets
CPT/HCPCS: 0241U; 36415; 71045; 80053; 83605; 83735; 83880; 84484; 85025; 85610; 85730; 93005; 99285; J3490; J7040

== ENCOUNTER 2022-08-22 13:33 | Emergency (ER) | payer MEDICARE, OTHER ==
[2022-08-22 14:32] VITALS: PULSE 82
== END 2022-08-22 15:20 | disposition left against medical advice (07) ==
LOC: DL.ED 13:33
DX: Z53.21 Procedure and treatment not carried out due to patient leaving prior to being seen by health care provider (principal)

== ENCOUNTER 2022-12-10 13:21 | Emergency (ER) | payer MEDICARE, OTHER ==
[2022-12-10 13:52] VITALS: BP 109/74; PULSE 94
[2022-12-10] MEDS ORDERED: Aspirin 81 MG Tab.Chew PO ONE (13:54)
[2022-12-10 13:59] LABS: ANION GAP 13.1 mEq/L (7-13)
[2022-12-10] MEDS ORDERED: Sodium Chloride 0.9% 1,000 ML IV ONE (14:06)
== END 2022-12-10 15:37 | disposition home or self-care (01) ==
LOC: DL.ED 13:21
DX: E86.0 Dehydration (principal); E78.00 Pure hypercholesterolemia, unspecified; I11.0 Hypertensive heart disease with heart failure; I50.9 Heart failure, unspecified; I25.2 Old myocardial infarction; I48.91 Unspecified atrial fibrillation; Z88.5 Allergy status to narcotic agent; Z88.0 Allergy status to penicillin; Z86.16 Personal history of COVID-19; Z95.5 Presence of coronary angioplasty implant and graft; Z79.01 Long term (current) use of anticoagulants; Z79.899 Other long term (current) drug therapy
CPT/HCPCS: 36415; 80053; 83605; 83735; 83880; 84484; 85025; 85610; 86140; 87040; 93005; 96360; 99285-25; A9270-GY; J1335; J7030

== ENCOUNTER 2022-12-12 10:11 | Inpatient (IN) | payer MEDICARE, OTHER ==
[2022-12-12] MEDS ORDERED: Famotidine 20 MG/2 ML SDV IVPUSH ONE (10:37)
[2022-12-12] MEDS ORDERED: Ondansetron 4 MG/2 ML SDV IV ONE (10:37)
[2022-12-12 11:13] LABS: ANION GAP 11.7 mEq/L (7-13)
[2022-12-12] MEDS ORDERED: Acetaminophen 325 MG Tab PO PRN (14:40)
[2022-12-12] MEDS ORDERED: Docusate Sodium 100 MG Cap PO PRN (14:40)
[2022-12-12] MEDS ORDERED: Ondansetron 4 MG Tab.DIS PO PRN (14:40)
[2022-12-12] MEDS ORDERED: Non-Formulary Medication 1 Each (Cinacalcet [Sensipar] 30 MG Tablet) PO SCH (15:00)
[2022-12-12] MEDS ORDERED: Warfarin 5 MG Tab PO SCH (15:45)
[2022-12-12] MEDS: Omeprazole 20 MG Cap.CR PO SCH (16:47)
[2022-12-12] MEDS: Midodrine 2.5 MG Tab PO SCH (16:48)
[2022-12-12] MEDS: Sodium Chloride 0.9% 1,000 ML IV SCH (17:22)
[2022-12-12] MEDS: Melatonin 3 MG Tab PO SCH (20:52)
[2022-12-12] MEDS ORDERED: CALCIUM ACETATE 667 MG PO SCH (21:00)
[2022-12-13] MEDS: Omeprazole 20 MG Cap.CR PO SCH ×2 (06:14→16:16)
[2022-12-13] MEDS: Midodrine 2.5 MG Tab PO SCH ×3 (06:14→16:16)
[2022-12-13] MEDS: Sodium Chloride 0.9% 1,000 ML IV SCH (06:19)
[2022-12-13 07:01] LABS: ANION GAP 10.6 mEq/L (7-13)
[2022-12-13] MEDS: DAPTOmycin 500 MG Vial IV SCH (09:01)
[2022-12-13] MEDS: Aspirin 81 MG Tab.EC PO SCH (09:02)
[2022-12-13] MEDS: Polyethylene Glycol 3350 Powder 17 GM Packet PO SCH (09:13)
[2022-12-13] MEDS ORDERED: Warfarin 5 MG Tab PO ONE (14:00)
[2022-12-13] MEDS: Melatonin 3 MG Tab PO SCH (20:08)
[2022-12-13] MEDS: Sodium Chloride 0.9% 10 ML Syringe FLUSH SCH (20:19)
[2022-12-14] MEDS: Omeprazole 20 MG Cap.CR PO SCH (05:09)
[2022-12-14] MEDS: Midodrine 2.5 MG Tab PO SCH ×3 (05:09→15:35)
[2022-12-14 06:25] LABS: ANION GAP 11.6 mEq/L (7-13)
[2022-12-14] MEDS: Calcitriol 0.25 MCG Cap PO SCH (09:03)
[2022-12-14] MEDS: Aspirin 81 MG Tab.EC PO SCH (09:03)
[2022-12-14] MEDS: Sodium Chloride 0.9% 10 ML Syringe FLUSH SCH ×2 (09:04→20:36)
[2022-12-14] MEDS: Polyethylene Glycol 3350 Powder 17 GM Packet PO SCH (09:05)
[2022-12-14] MEDS: Ondansetron 4 MG/2 ML SDV IVPUSH PRN (11:07)
[2022-12-14] MEDS: Sodium Chloride 0.9% 1,000 ML IV SCH (11:07)
[2022-12-14 11:32] LABS: ANION GAP 13.6 mEq/L (7-13)
[2022-12-14] MEDS: Levofloxacin/Dextrose 5%-Water 250 MG in Premix Bag 1 BAG IV SCH (13:51)
[2022-12-14] MEDS: Melatonin 3 MG Tab PO SCH (20:36)
[2022-12-15] MEDS: Sodium Chloride 0.9% 1,000 ML IV SCH ×2 (00:52→14:19)
[2022-12-15] MEDS: Midodrine 2.5 MG Tab PO SCH ×3 (05:29→15:34)
[2022-12-15 06:08] LABS: ANION GAP 10.3 mEq/L (7-13)
[2022-12-15] MEDS: Pantoprazole 40 MG Vial IVPUSH SCH (08:43)
[2022-12-15] MEDS: DAPTOmycin 500 MG Vial IV SCH (08:53)
[2022-12-15] MEDS: Aspirin 81 MG Tab.EC PO SCH (08:53)
[2022-12-15] MEDS: Polyethylene Glycol 3350 Powder 17 GM Packet PO SCH (08:55)
[2022-12-15] MEDS: Sodium Chloride 0.9% 10 ML Syringe FLUSH SCH ×2 (08:56→20:27)
[2022-12-15] MEDS ORDERED: Potassium Chloride 10 MEQ Tab.ER PO ONE (09:00)
[2022-12-15] MEDS ORDERED: Warfarin 5 MG Tab PO ONE (14:00)
[2022-12-15] MEDS: Levofloxacin/Dextrose 5%-Water 250 MG in Premix Bag 1 BAG IV SCH (14:10)
[2022-12-15] MEDS: QUEtiapine 25 MG Tab PO SCH (20:15)
[2022-12-16] MEDS: Sodium Chloride 0.9% 1,000 ML IV SCH (03:09)
[2022-12-16] MEDS: Midodrine 2.5 MG Tab PO SCH ×3 (05:10→16:20)
[2022-12-16 06:33] LABS: ANION GAP 10.3 mEq/L (7-13)
[2022-12-16] MEDS: Calcitriol 0.25 MCG Cap PO SCH (08:47)
[2022-12-16] MEDS: Pantoprazole 40 MG Vial IVPUSH SCH (08:48)
[2022-12-16] MEDS: Aspirin 81 MG Tab.EC PO SCH (08:48)
[2022-12-16] MEDS: Polyethylene Glycol 3350 Powder 17 GM Packet PO SCH (08:48)
[2022-12-16] MEDS: Sodium Chloride 0.9% 10 ML Syringe FLUSH SCH ×2 (08:49→20:32)
[2022-12-16] MEDS ORDERED: Potassium Chloride 10 MEQ Tab.ER PO ONE (13:00)
[2022-12-16] MEDS: Levofloxacin/Dextrose 5%-Water 250 MG in Premix Bag 1 BAG IV SCH (13:28)
[2022-12-16] MEDS ORDERED: Polyethylene Glycol 3350 Powder 17 GM Packet PO PRN (13:36)
[2022-12-16] MEDS ORDERED: Warfarin 5 MG Tab PO ONE (14:00)
[2022-12-16] MEDS ORDERED: Warfarin 5 MG Tab PO SCH (14:00)
[2022-12-16] MEDS: QUEtiapine 25 MG Tab PO SCH (20:32)
[2022-12-17] MEDS: Midodrine 2.5 MG Tab PO SCH ×3 (05:36→16:54)
[2022-12-17 05:59] LABS: ANION GAP 16.2 mEq/L (7-13)
[2022-12-17] MEDS: DAPTOmycin 500 MG Vial IV SCH (09:00)
[2022-12-17] MEDS: Aspirin 81 MG Tab.EC PO SCH (09:00)
[2022-12-17] MEDS: Pantoprazole 40 MG Vial IVPUSH SCH (09:00)
[2022-12-17] MEDS: Sodium Chloride 0.9% 10 ML Syringe FLUSH SCH ×2 (09:01→21:26)
[2022-12-17] MEDS: Levofloxacin/Dextrose 5%-Water 250 MG in Premix Bag 1 BAG IV SCH (14:08)
[2022-12-17] MEDS ORDERED: Warfarin 2.5 MG Tab PO ONE (16:00)
[2022-12-17] MEDS ORDERED: Warfarin 5 MG Tab PO ONE (16:00)
[2022-12-17] MEDS: QUEtiapine 25 MG Tab PO SCH (21:26)
[2022-12-18 06:19] LABS: ANION GAP 11.8 mEq/L (7-13)
[2022-12-18] MEDS: Midodrine 2.5 MG Tab PO SCH ×3 (06:36→16:00)
[2022-12-18] MEDS: Aspirin 81 MG Tab.EC PO SCH (08:00)
[2022-12-18] MEDS: Pantoprazole 40 MG Vial IVPUSH SCH ×2 (08:00→08:06)
[2022-12-18] MEDS: Calcitriol 0.25 MCG Cap PO SCH (08:00)
[2022-12-18] MEDS: Sodium Chloride 0.9% 10 ML Syringe FLUSH SCH ×2 (08:01→22:28)
[2022-12-18] MEDS: Levofloxacin/Dextrose 5%-Water 250 MG in Premix Bag 1 BAG IV SCH (13:46)
[2022-12-18] MEDS ORDERED: Warfarin 5 MG Tab PO ONE (14:00)
[2022-12-18] MEDS: QUEtiapine 25 MG Tab PO SCH (22:29)
[2022-12-19] MEDS: Midodrine 2.5 MG Tab PO SCH ×3 (06:27→16:05)
[2022-12-19] MEDS: Calcitriol 0.25 MCG Cap PO SCH (08:01)
[2022-12-19] MEDS: Pantoprazole 40 MG Vial IVPUSH SCH (08:01)
[2022-12-19] MEDS: Aspirin 81 MG Tab.EC PO SCH (08:02)
[2022-12-19] MEDS: Sodium Chloride 0.9% 10 ML Syringe FLUSH SCH ×2 (08:02→22:00)
[2022-12-19] MEDS ORDERED: Warfarin 5 MG Tab PO ONE (14:00)
[2022-12-19] MEDS: Levofloxacin/Dextrose 5%-Water 250 MG in Premix Bag 1 BAG IV SCH (14:08)
[2022-12-19] MEDS: QUEtiapine 25 MG Tab PO SCH (22:00)
[2022-12-20] MEDS: Midodrine 2.5 MG Tab PO SCH ×3 (05:44→15:44)
[2022-12-20 06:45] LABS: ANION GAP 11.7 mEq/L (7-13)
[2022-12-20] MEDS: Aspirin 81 MG Tab.EC PO SCH (10:13)
[2022-12-20] MEDS: Pantoprazole 40 MG Vial IVPUSH SCH (10:14)
[2022-12-20] MEDS: Sodium Chloride 0.9% 10 ML Syringe FLUSH SCH ×2 (10:14→20:28)
[2022-12-20] MEDS ORDERED: Warfarin 5 MG Tab PO ONE (14:00)
[2022-12-20] MEDS: Levofloxacin/Dextrose 5%-Water 250 MG in Premix Bag 1 BAG IV SCH (14:53)
[2022-12-20] MEDS ORDERED: QUEtiapine 25 MG Tab PO SCH (21:00)
[2022-12-21] MEDS: Midodrine 2.5 MG Tab PO SCH ×3 (06:07→15:03)
[2022-12-21] MEDS ORDERED: Aspirin 81 MG Tab.EC PO SCH (09:00)
[2022-12-21] MEDS: Sodium Chloride 0.9% 500 ML IV SCH ×2 (09:05→12:14)
[2022-12-21] MEDS: Aspirin 81 MG Tab.EC PO SCH (09:22)
[2022-12-21] MEDS: Calcitriol 0.25 MCG Cap PO SCH (09:23)
[2022-12-21] MEDS: Pantoprazole 40 MG Vial IVPUSH SCH (09:41)
[2022-12-21] MEDS: Sodium Chloride 0.9% 10 ML Syringe FLUSH SCH ×2 (09:42→20:56)
[2022-12-21] MEDS ORDERED: Sodium Chloride 0.9% 500 ML IV SCH (12:00)
[2022-12-21] MEDS: Levofloxacin/Dextrose 5%-Water 250 MG in Premix Bag 1 BAG IV SCH (13:32)
[2022-12-21] MEDS ORDERED: Warfarin 2.5 MG Tab PO ONE (14:00)
[2022-12-21] MEDS ORDERED: traZODone 50 MG Tab PO SCH (21:00)
[2022-12-22] MEDS: HYDROmorphone 0.5 MG/0.5 ML Syringe IVPUSH PRN ×4 (01:02→21:53)
[2022-12-22] MEDS: Sodium Chloride 0.9% 10 ML Syringe FLUSH SCH ×3 (01:03→21:24)
[2022-12-22] MEDS: Midodrine 2.5 MG Tab PO SCH ×3 (05:39→15:59)
[2022-12-22 06:13] LABS: ANION GAP 11.6 mEq/L (7-13)
[2022-12-22] MEDS ORDERED: Magnesium Sulfate/Water 50 ML ONE ×2 (08:28→14:46)
[2022-12-22] MEDS: Pantoprazole 40 MG Vial IVPUSH SCH (08:38)
[2022-12-22] MEDS: Ondansetron 4 MG/2 ML SDV IVPUSH PRN (08:41)
[2022-12-22] MEDS: Aspirin 81 MG Tab.EC PO SCH (08:44)
[2022-12-22] MEDS ORDERED: Magnesium Sulfate/Water 2 GM in Premix Bag 1 BAG IV ONE ×2 (09:00→15:00)
[2022-12-22] MEDS: Albumin Human 25 GM in Premix Bag 1 BAG IV SCH ×2 (11:55→18:16)
[2022-12-22] MEDS ORDERED: VANCOmycin 1.5 GM/300 ML 1.5 GM in Premix Bag 1 BAG IV ONE (12:00)
[2022-12-22] MEDS ORDERED: Sodium Chloride 0.9% 10 ML Syringe IV PRN (12:14)
[2022-12-22] MEDS ORDERED: VANCOmycin 1.5 GM/300 ML 300 ML ONE (12:42)
[2022-12-22] MEDS ORDERED: metroNIDAZOLE/Normal Saline 100 ML ONE ×2 (13:25→20:50)
[2022-12-22] MEDS: metroNIDAZOLE/Normal Saline 500 MG in Premix Bag 1 BAG IV SCH ×2 (14:42→21:05)
[2022-12-22] MEDS ORDERED: Melatonin 3 MG Tab PO PRN (21:00)
[2022-12-22] MEDS ORDERED: traZODone 50 MG Tab PO SCH (21:00)
[2022-12-22] MEDS ORDERED: LORazepam 0.5 MG Tab PO PRN (21:09)
[2022-12-23] MEDS: Albumin Human 25 GM in Premix Bag 1 BAG IV SCH ×3 (00:08→14:05)
[2022-12-23] MEDS ORDERED: metroNIDAZOLE/Normal Saline 100 ML ONE ×2 (04:51→13:14)
[2022-12-23] MEDS: metroNIDAZOLE/Normal Saline 500 MG in Premix Bag 1 BAG IV SCH ×2 (05:40→14:05)
[2022-12-23] MEDS: HYDROmorphone 0.5 MG/0.5 ML Syringe IVPUSH PRN ×2 (05:45→12:04)
[2022-12-23] MEDS: Midodrine 2.5 MG Tab PO SCH ×2 (05:49→14:04)
[2022-12-23 06:42] LABS: ANION GAP 14.3 mEq/L (7-13)
[2022-12-23] MEDS ORDERED: Potassium Chloride 10 MEQ Tab.ER PO ONE ×2 (07:04→10:00)
[2022-12-23 08:12] VITALS: BP 97/50; PULSE 74
[2022-12-23] MEDS: Pantoprazole 40 MG Vial IVPUSH SCH (09:17)
[2022-12-23] MEDS: Calcitriol 0.25 MCG Cap PO SCH (09:18)
[2022-12-23] MEDS: Sodium Chloride 0.9% 10 ML Syringe FLUSH SCH (09:19)
[2022-12-23] MEDS: Aspirin 81 MG Tab.EC PO SCH (09:19)
[2022-12-23] MEDS: Ondansetron 4 MG/2 ML SDV IVPUSH PRN (12:04)
[2022-12-23] MEDS ORDERED: LORazepam 2 MG/ML SDV IVPUSH PRN (14:36)
[2022-12-23] MEDS ORDERED: MORPHINE 100 MG/5 ML SL PRN (14:36)
[2022-12-23] MEDS ORDERED: Morphine 2 MG/ML SYRINGE IVPUSH PRN (14:36)
[2022-12-23] MEDS ORDERED: Atropine 1% Ophth Soln 5 ML Bottle SL PRN (14:37)
[2022-12-23] MEDS ORDERED: Scopolamine 1.5 MG Transdermal Patch TRDERM SCH (15:00)
== END 2022-12-23 15:48 | disposition swing bed (61) | DRG 871 ==
LOC: DL.ED 10:11 → DL.MS 13:41 → DL.ED 13:48
PROVIDERS: ADMIT Internal Medicine; ATTEND Internal Medicine
DX: A41.9 Sepsis, unspecified organism (principal); G93.41 Metabolic encephalopathy; K65.9 Peritonitis, unspecified; N18.6 End stage renal disease; K85.90 Acute pancreatitis without necrosis or infection, unspecified; I13.2 Hypertensive heart and chronic kidney disease with heart failure and with stage 5 chronic kidney disease, or end stage renal disease; I50.32 Chronic diastolic (congestive) heart failure; F05 Delirium due to known physiological condition; E78.5 Hyperlipidemia, unspecified; Z66 Do not resuscitate; I25.10 Atherosclerotic heart disease of native coronary artery without angina pectoris; I27.20 Pulmonary hypertension, unspecified; G47.00 Insomnia, unspecified; G30.9 Alzheimer's disease, unspecified; F02.80 Dementia in other diseases classified elsewhere, unspecified severity, without behavioral disturbance, psychotic disturbance, mood disturbance, and anxiety; E55.9 Vitamin D deficiency, unspecified; R29.6 Repeated falls; E78.00 Pure hypercholesterolemia, unspecified; K29.80 Duodenitis without bleeding; E87.6 Hypokalemia; E86.0 Dehydration; D63.1 Anemia in chronic kidney disease; Z95.4 Presence of other heart-valve replacement; Z88.0 Allergy status to penicillin; Z88.5 Allergy status to narcotic agent; Z98.890 Other specified postprocedural states; I25.2 Old myocardial infarction; Z95.5 Presence of coronary angioplasty implant and graft; Z99.2 Dependence on renal dialysis; Z79.01 Long term (current) use of anticoagulants; Z79.899 Other long term (current) drug therapy; Z79.82 Long term (current) use of aspirin
CPT/HCPCS: 36415; 71045; 74176; 80048; 80053; 80202; 82140; 82150; 82550; 82947; 83605; 83690; 83735; 84484; 85025; 85610; 86140; 93005; 93010; 96374; 96375; 97110-GP; 97161-GP; 97165-GO; 97530-GO; 97535-GO; 99232; 99238; 99285; 99285-25; A9270-GY; C9113; J0878; J1170; J1956; J2405; J3370; J3475; J3490; J7030; J7040; P9047

== ENCOUNTER 2022-12-23 13:01 | Inpatient (IN) | payer MEDICARE, OTHER ==
[2022-12-23] MEDS ORDERED: LORazepam 2 MG/ML SDV IVPUSH PRN ×2 (15:19→19:03)
[2022-12-23] MEDS ORDERED: Morphine 2 MG/ML SYRINGE IVPUSH PRN (15:19)
[2022-12-23] MEDS ORDERED: Atropine 1% Ophth Soln 5 ML Bottle SL PRN (15:19)
[2022-12-23] MEDS ORDERED: MORPHINE 100 MG/5 ML SL PRN (15:19)
[2022-12-23] MEDS ORDERED: Morphine 10 MG/ML Syringe IVPUSH PRN (18:43)
[2022-12-26] MEDS ORDERED: Scopolamine 1.5 MG Transdermal Patch TRDERM SCH (15:00)
== END 2022-12-24 01:36 | disposition expired | DRG 951 ==
LOC: DL.MS 15:49
PROVIDERS: ADMIT Internal Medicine; ATTEND Internal Medicine
DX: Z51.5 Encounter for palliative care (principal); E43 Unspecified severe protein-calorie malnutrition; N18.6 End stage renal disease; A41.9 Sepsis, unspecified organism; K65.9 Peritonitis, unspecified; K85.90 Acute pancreatitis without necrosis or infection, unspecified; I13.2 Hypertensive heart and chronic kidney disease with heart failure and with stage 5 chronic kidney disease, or end stage renal disease; I50.32 Chronic diastolic (congestive) heart failure; M00.9 Pyogenic arthritis, unspecified; Z66 Do not resuscitate; H91.90 Unspecified hearing loss, unspecified ear; H54.7 Unspecified visual loss; E78.00 Pure hypercholesterolemia, unspecified; I34.0 Nonrheumatic mitral (valve) insufficiency; G47.00 Insomnia, unspecified; E55.9 Vitamin D deficiency, unspecified; I25.10 Atherosclerotic heart disease of native coronary artery without angina pectoris; I27.20 Pulmonary hypertension, unspecified; K29.80 Duodenitis without bleeding; D63.1 Anemia in chronic kidney disease; I95.9 Hypotension, unspecified; E88.09 Other disorders of plasma-protein metabolism, not elsewhere classified; R53.81 Other malaise; R79.1 Abnormal coagulation profile; R29.6 Repeated falls; R74.8 Abnormal levels of other serum enzymes; Z99.2 Dependence on renal dialysis; Z79.01 Long term (current) use of anticoagulants; Z79.82 Long term (current) use of aspirin; I25.2 Old myocardial infarction; Z86.16 Personal history of COVID-19; Z95.2 Presence of prosthetic heart valve; Z88.5 Allergy status to narcotic agent; Z88.0 Allergy status to penicillin; Z79.899 Other long term (current) drug therapy; Z95.5 Presence of coronary angioplasty implant and graft
CPT/HCPCS: J2060; J2270